=== PATIENT | female | born 1995 | race Caucasian/White ===

== ENCOUNTER 2019-05-13 11:42 | Emergency (ER) | payer SELFPAY ==
[2019-05-13] MEDS ORDERED: methylPREDNISolone Sodium Succinate 125 MG/2 ML SDV IM ONE (12:02)
--- NOTE | 2019-05-13 12:11 | EDM.PDOC ---
ED HPI GENERAL MEDICAL PROBLEM - General Chief Complaint: Allergic Reaction Stated Complaint: ALLERGIC REACTION Time Seen by Provider: 05/13/19 11:58 Source of Information: Reports: Patient History Limitations: Reports: No Limitations - History of Present Illness INITIAL COMMENTS - FREE TEXT/NARRATIVE: HISTORY AND PHYSICAL: History of present illness: Patient is a 24-year-old female who presents to the emergency room with concerns of an allergic reaction. She states she woke up this morning with irritated eyes, left greater than right and green crusty drainage along her lash line. She also noticed some redness to her upper forehead that appeared rash like. She denies any new exposures (fabrics, facewash, ointments etc..). Patient denies any fever, chills, headache, change in vision, syncope or near syncope. Denies any chest pain, back pain, shortness of breath or cough. Denies any GI or symptoms. Patient has been eating and drinking appropriately. Patient denies any personal or family history of any autoimmune diseases. Review of systems: As per history of present illness and below otherwise all systems reviewed and negative. Past medical history: As per history of present illness and as reviewed below otherwise noncontributory. Surgical history: As per history of present illness and as reviewed below otherwise noncontributory. Social history: See social history for further information Family history: As per history of present illness and as reviewed below otherwise noncontributory. Physical exam: General: Well-developed and well-nourished 24-year-old female. Alert and oriented. Nontoxic-appearing and in no acute distress. HEENT: Atraumatic, normocephalic, pupils equal and reactive bilaterally, negative for conjunctival pallor or scleral icterus, lateral injection noted to the left, both eyes have green crusty watery drainage along the lower lash line , mucous membranes moist, TMs normal bilaterally, throat clear, neck supple, nontender, trachea midline. No drooling or trismus noted. No meningeal signs. No hot potato voice noted. Lungs: Clear to auscultation, breath sounds equal bilaterally, chest nontender. Heart: S1S2, regular rate and rhythm without overt murmur Abdomen: Soft, nondistended, nontender. Negative for masses or hepatosplenomegaly. Negative for costovertebral tenderness. Pelvis: Stable nontender. Skin: Irritation noted around both eyes. She has a faint rash to the upper forehead, nonraised. No butterfly type rash noted. Otherwise skin is intact, warm, dry. No lesions or rashes noted. Extremities: Atraumatic, moves all extremities per self without difficulty or deficits, negative for cords or calf pain. Neurovascular unremarkable. Neuro: Awake, alert, oriented. Cranial nerves II through XII unremarkable. Cerebellum unremarkable. Motor and sensory unremarkable throughout. Exam nonfocal. Notes: Bilateral conjunctivitis will be treated with eyedrops. She states she had been washing her face and wiping away the drainage she had this morning. Looks like she may have irritated her skin to the upper forehead but will give Solu- Medrol while here we discussed using Benadryl. Reviewed signs and symptoms that would prompt her to return to the emergency room. Supportive care measures were reviewed and discussed. Voices understanding and is agreeable to plan of care. Denies any further questions or concerns at this time. Diagnostics: None Therapeutics: Solu-Medrol IM Prescription: Polytrim Impression: Conjunctivitis Contact dermatitis Plan: 1. Avoid triggers. Continue to monitor for possible exposures/triggers/foods. 2. While symptomatic continue to routinely take Benadryl 50mg every 4-6 hours. 3. Good handwashing well applying the eyedrops as this is contagious. 4. Please follow up with your Primary care doctor as we discussed. Return to the ED as needed and as discussed. Definitive disposition and diagnosis as appropriate pending reevaluation and review of above. fafce/eyes Pain Score (Numeric/FACES): 4 - Related Data Allergies Allergy/AdvReac Type Severity Reaction Status Date / Time ibuprofen Allergy Severe Other Verified 05/13/19 11:51 Penicillins Allergy Severe Swollen Verified 05/13/19 11:51 Tongue Home Meds: Home Meds Polymyxin B Sulf/Trimethoprim [Polytrim Eye Drops] 1 drop OP 5XDAY 7 Days #1 drops 05/13/19 [Rx] Past Medical History HEENT History: Reports: Impaired Vision, Other (See Below) Other HEENT History: wears glasses Cardiovascular History: Reports: None Respiratory History: Reports: Asthma Gastrointestinal History: Reports: Irritable Bowel Syndrome Genitourinary History: Reports: None 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 Musculoskeletal History: Reports: None Neurological History: Reports: None Psychiatric History: Reports: None Endocrine/Metabolic History: Reports: None Hematologic History: Reports: None Immunologic History: Reports: None Oncologic (Cancer) History: Reports: None Dermatologic History: Reports: None - Past Surgical History Head Surgeries/Procedures: Reports: None HEENT Surgical History: Reports: None Cardiovascular Surgical History: Reports: None Respiratory Surgical History: Reports: None GI Surgical History: Reports: None Female Surgical History: Reports: D&C, Tubal Ligation Endocrine Surgical History: Reports: None Neurological Surgical History: Reports: None Musculoskeletal Surgical History: Reports: None Oncologic Surgical History: Reports: None Dermatological Surgical History: Reports: None Social & Family History - Family History Family Medical History: Noncontributory - Tobacco Use Smoking Status *Q: Never Smoker Second Hand Smoke Exposure: No - Caffeine Use Caffeine Use: Reports: None - Recreational Drug Use Recreational Drug Use: No ED ROS ALLERGIC REACTION - Review of Systems Review Of Systems: Comprehensive ROS is negative, except as noted in HPI. ED EXAM GENERAL NO PERIP PULSE - Physical Exam Exam: See Below (See dictation) Course - Vital Signs Last Recorded V/S: Last Vital Signs Temp 96.7 F 05/13/19 11:51 Pulse 86 05/13/19 11:51 Resp 18 05/13/19 11:51 BP 144/89 H 05/13/19 11:51 Pulse Ox 96 05/13/19 11:51 - Orders/Labs/Meds Meds: Medications Discontinued Medications Generic Name Dose Route Start Last Admin Trade Name Rajinder PRN Reason Stop Dose Admin Methylprednisolone Sodium Succinate 125 mg 05/13/19 12:02 Solu-Medrol IM 05/13/19 12:03 ONETIME ONE Departure - Departure Time of Disposition: 12:15 Disposition: Home, Self-Care 01 Clinical Impression: Bacterial conjunctivitis of both eyes Contact dermatitis Qualifiers: Contact dermatitis type: unspecified Contact dermatitis trigger: unspecified trigger Qualified Code(s): L25.9 - Unspecified contact dermatitis, unspecified cause - Discharge Information Prescriptions: Polymyxin B Sulf/Trimethoprim [Polytrim Eye Drops] 1 drop OP 5XDAY 7 Days #1 drops Instructions: Bacterial Conjunctivitis, [id number], Contact Dermatitis Referrals: PCP,None [Primary Care Provider] - Additional Instructions: The following information is given to patients seen in the emergency department who are being discharged to home. This information is to outline your options for follow-up care. We provide all patients seen in our emergency department with a follow-up referral. The need for follow-up, as well as the timing and circumstances, are variable depending upon the specifics of your emergency department visit. If you don't have a primary care physician on staff, we will provide you with a referral. We always advise you to contact your personal physician following an emergency department visit to inform them of the circumstance of the visit and for follow-up with them and/or the need for any referrals to a consulting specialist. The emergency department will also refer you to a specialist when appropriate. This referral assures that you have the opportunity for follow-up care with a specialist. All of these measure are taken in an effort to provide you with optimal care, which includes your follow-up. Under all circumstances we always encourage you to contact your private physician who remains a resource for coordinating your care. When calling for follow-up care, please make the office aware that this follow-up is from your recent emergency room visit. If for any reason you are refused follow-up, please contact the [facility] Emergency Department at and asked to speak to the emergency department charge nurse. [facility] [address] [place] [id number] [facility] [address] [place] [id number] 1. Avoid any possible triggers. Continue to monitor for possible exposures/ triggers/foods. 2. While symptomatic continue to routinely take Benadryl 50mg every 4-6 hours. 3. Good handwashing well applying the eyedrops as this is contagious. If you have any previous contact lenses please throw them away and start a fresh pair. Wear your glasses while using the eyedrops and until the infection has cleared. 4. Please follow up with your Primary care doctor as we discussed. Return to the ED as needed and as discussed. Sepsis Event Note - Evaluation Sepsis Screening Result: No Definite Risk - Focused Exam Vital Signs: Vital Signs Temp Pulse Resp BP Pulse Ox 05/13/19 11:51 96.7 F 86 18 144/89 H 96 Date Exam was Performed: 05/13/19 Time Exam was Performed: 12:12
== END 2019-05-13 12:26 | disposition home or self-care (01) ==
LOC: MW.ED 11:42
DX: H10.89 Other conjunctivitis (principal); L25.9 Unspecified contact dermatitis, unspecified cause; Z88.6 Allergy status to analgesic agent; Z88.0 Allergy status to penicillin
CPT/HCPCS: 96372; 99283; J2930

== ENCOUNTER 2019-05-26 23:37 | Emergency (ER) | payer SELFPAY ==
--- NOTE | 2019-05-27 00:47 | EDM.PDOC ---
ED HPI GENERAL MEDICAL PROBLEM - General Chief Complaint: General Stated Complaint: POSSIBLE BLOODCLOT IN LEGS Time Seen by Provider: 05/27/19 00:37 - History of Present Illness INITIAL COMMENTS - FREE TEXT/NARRATIVE: HISTORY AND PHYSICAL: History of present illness: Patient is a 24-year-old female who complains of pain at the lower posterior portion of her left thigh that started today suddenly and she is concerned about a blood clot. The patient says she has had 2 prior DVTs, one was spontaneous and they did not do a big work-up and the second was due to prolonged bedrest, but she has never had a lab evaluation to determine if she is predisposed for clotting issues. The patient says that she did have a fall 3 days ago where she slipped hit her head but did not pass out or blackout and landed on her right leg but does not recall twisting or injuring her left leg. She has no bony leg pain on the left i.e. no hip pain pelvis pain femur knee tib -fib ankle or foot pain. She has no head neck or back pain and no systemic complaint such as fever chills nausea vomiting shortness of breath chest pain or abdominal issues. The patient says that she does not notice that it was particularly swollen but it is discomforting and it feels like her prior DVT. She has no neurosensory changes in her leg. The patient says she is not sure if this discomfort is related to her fall 3 days ago but she thinks not because she did not have any discomfort in this area for the last 3 days and the pain only started this evening. Review of systems: As per history of present illness and below otherwise all systems reviewed and negative. Past medical history: As per history of present illness and as reviewed below otherwise noncontributory. Surgical history: As per history of present illness and as reviewed below otherwise noncontributory. Social history: No reported history of drug or alcohol abuse. Family history: As per history of present illness and as reviewed below otherwise noncontributory. Physical exam: Well-developed well-nourished female who is nontoxic but obese. She moves easily in the ED without distress HEENT: Atraumatic, normocephalic, pupils reactive, negative for conjunctival pallor or scleral icterus, mucous membranes moist, throat clear, neck supple, nontender, trachea midline. Lungs: Clear to auscultation, breath sounds equal bilaterally, chest nontender. Heart: S1S2, regular, negative for clicks, rubs, or JVD. Abdomen: Soft, nondistended, nontender. Negative for masses or hepatosplenomegaly. Negative for costovertebral tenderness. Pelvis: Stable nontender. Genitourinary: Deferred. Rectal: Deferred. Extremities: Atraumatic, full range of motion of all extremities including the lower extremities without any bony defects deformities or malalignments. On palpation of the posterior distal thigh just above the popliteal fossa there is tenderness but I do not appreciate any fullness and there is no soft tissue swelling or ecchymosis. The patient can range of motion at the hip and knee without issue and can internally and externally rotate at the hip and flex and extend at the knee. There is no specific calf tenderness. The remainder of the extremities have no issues. Neurovascular unremarkable. Neuro: Awake, alert, oriented. Cranial nerves II through XII unremarkable. Cerebellum unremarkable. Motor and sensory unremarkable throughout. Exam nonfocal. Diagnostics: venous Doppler of left lower extremity Therapeutics: Patient is aware of the ultrasound results and I have offered her x-rays of this leg as well as medications and she is declining. She says she was only concerned about a DVT. Impression: Left thigh/posterior leg pain Definitive disposition and diagnosis as appropriate pending reevaluation and review of above. Left Thigh Pain Score (Numeric/FACES): 6 - Related Data Allergies Allergy/AdvReac Type Severity Reaction Status Date / Time ibuprofen Allergy Severe Other Verified 05/13/19 11:51 Penicillins Allergy Severe Swollen Verified 05/13/19 11:51 Tongue trazodone Allergy Swollen Verified 05/26/19 23:56 Tongue Home Meds: Home Meds . 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 Musculoskeletal History: Reports: None Neurological History: Reports: None Psychiatric History: Reports: None Endocrine/Metabolic History: Reports: None Hematologic History: Reports: None Immunologic History: Reports: None Oncologic (Cancer) History: Reports: None Dermatologic History: Reports: None - Past Surgical History Head Surgeries/Procedures: Reports: None HEENT Surgical History: Reports: None Cardiovascular Surgical History: Reports: None Respiratory Surgical History: Reports: None GI Surgical History: Reports: None Female Surgical History: Reports: D&C, Tubal Ligation Endocrine Surgical History: Reports: None Neurological Surgical History: Reports: None Musculoskeletal Surgical History: Reports: None Oncologic Surgical History: Reports: None Dermatological Surgical History: Reports: None Social & Family History - Family History Family Medical History: Noncontributory - Tobacco Use Smoking Status *Q: Never Smoker Second Hand Smoke Exposure: No - Caffeine Use Caffeine Use: Reports: None - Recreational Drug Use Recreational Drug Use: No ED ROS GENERAL - Review of Systems Review Of Systems: Comprehensive ROS is negative, except as noted in HPI. ED EXAM, GENERAL - Physical Exam Exam: See Below (see dictation) Course - Vital Signs Last Recorded V/S: Last Vital Signs Temp Pulse 90 05/26/19 23:53 Resp 18 05/26/19 23:53 BP 138/86 05/26/19 23:53 Pulse Ox 97 05/26/19 23:53 Departure - Departure Time of Disposition: Disposition: Home, Self-Care 01 Condition: Good Clinical Impression: Lower extremity pain, left - Discharge Information Referrals: PCP,None [Primary Care Provider] - Forms: ED Department Discharge Additional Instructions: The following information is given to patients seen in the emergency department who are being discharged to home. This information is to outline your options for follow-up care. We provide all patients seen in our emergency department with a follow-up referral. The need for follow-up, as well as the timing and circumstances, are variable depending upon the specifics of your emergency department visit. If you don't have a primary care physician on staff, we will provide you with a referral. We always advise you to contact your personal physician following an emergency department visit to inform them of the circumstance of the visit and for follow-up with them and/or the need for any referrals to a consulting specialist. The emergency department will also refer you to a specialist when appropriate. This referral assures that you have the opportunity for followup care with a specialist. All of these measure are taken in an effort to provide you with optimal care, which includes your followup. Under all circumstances we always encourage you to contact your private physician who remains a resource for coordinating your care. When calling for followup care, please make the office aware that this follow-up is from your recent emergency room visit. If for any reason you are refused follow-up, please contact the [facility] emergency department at and ask to speak to the emergency department charge nurse. [facility]- Internal Medicine and Family [address] [address] Ice to area and use [id number] medications for pain management. Please connect and follow-up with your provider in the clinic if the pain persists and return to ER as needed and as discussed. Sepsis Event Note - Evaluation Sepsis Screening Result: No Definite Risk - Focused Exam Vital Signs: Vital Signs Pulse Resp BP Pulse Ox 05/26/19 23:53 90 18 138/86 97 Date Exam was Performed: 05/27/19 Time Exam was Performed: 01:26
--- NOTE | 2019-05-27 01:23 | US ---
INDICATION: Left thigh pain, history of DVT COMPARISON: None. TECHNIQUE: A compression venous ultrasound exam was performed of the left lower extremity using mooney-scale imaging, color Doppler and spectral Doppler analysis. FINDINGS: Sonographic imaging of the left lower extremity demonstrates normal compressibility and color Doppler venous blood flow within the common femoral vein, deep femoral vein, and the proximal greater saphenous vein. Within the thigh, the femoral vein is patent and compressible. At a lower level, the popliteal and posterior tibial veins also show normal compressibility and color Doppler venous blood flow. IMPRESSION: No evidence of deep vein thrombosis within the left lower extremity. Dictated by Teodora Almeida MD @ May 27 2019 1:19AM Signed by Dr. Teodora Almeida @ May 27 2019 1:21AM
== END 2019-05-27 01:40 | disposition home or self-care (01) ==
LOC: MW.ED 23:37
DX: M79.652 Pain in left thigh (principal); Z88.0 Allergy status to penicillin; Z88.6 Allergy status to analgesic agent; Z88.8 Allergy status to other drugs, medicaments and biological substances
CPT/HCPCS: 93971-26-LT; 93971-LT; 99283-25

== ENCOUNTER 2019-08-07 22:03 | Emergency (ER) | payer SELFPAY ==
[2019-08-07] MEDS ORDERED: methylPREDNISolone Sodium Succinate 125 MG/2 ML SDV ONE (22:06)
[2019-08-07] MEDS ORDERED: Famotidine 20 MG/2 ML SDV ONE (22:06)
[2019-08-07] MEDS ORDERED: diphenhydrAMINE 50 MG/ML SDV ONE (22:06)
[2019-08-07] MEDS ORDERED: EPINEPHrine 1 MG/ML SDV ONE (22:07)
[2019-08-07] MEDS ORDERED: diphenhydrAMINE 50 MG/ML SDV IVPUSH ONE (22:14)
[2019-08-07] MEDS ORDERED: EPINEPHrine 1 MG/ML SDV IM ONE (22:14)
[2019-08-07] MEDS ORDERED: methylPREDNISolone Sodium Succinate 125 MG/2 ML SDV IVPUSH ONE (22:14)
[2019-08-07] MEDS ORDERED: Famotidine 20 MG/2 ML SDV IVPUSH ONE (22:14)
--- NOTE | 2019-08-07 22:17 | EDM.PDOC ---
ED HPI GENERAL MEDICAL PROBLEM - General Chief Complaint: Allergic Reaction Stated Complaint: ALLERGIC REACTION Time Seen by Provider: 08/07/19 22:03 Source of Information: Reports: Patient History Limitations: Reports: No Limitations - History of Present Illness INITIAL COMMENTS - FREE TEXT/NARRATIVE: HISTORY OF PRESENT ILLNESS: Patient is a 24-year-old female who presents with allergic reaction. Patient states that approximately 10 minutes prior to arrival she started having red raised area to her body diffusely but predominantly on her bilateral forearms along with sensation that the right side of her tongue is becoming swollen. Denies any difficulty swallowing. No dyspnea or wheezing. Denies any chest pain abdominal pain, vomiting or diarrhea. Denies any new medications, detergents, lotions, viut-hyr-plzmgnh's, herbals, foods. Shee cannot think of any inciting cause. She has had a history of allergic reaction in the past which was due to eating a "cheap hamburger". Has had allergy testing done several years ago. Does not take any medication on a regular basis. REVIEW OF SYSTEMS: Other than the symptoms associated with the present events, the following is reported with regard to recent health: General: (-) fever. HENT: (-) congestion. Respiratory: (-) cough. Cardiovascular: (-) chest pain. GI: (-) abdominal pain. : (-) urinary complaints. Musculoskeletal: (-) other aches or pains. Endocrine: (-) generalized weakness. Neurological: (-) localized weakness. Skin: (+) rash PAST MEDICAL HISTORY: reviewed as per nursing notes SOCIAL HISTORY: reviewed as per nursing notes, MEDICATIONS: Per nurse's note ALLERGIES: Per nurse's note, reviewed by me PHYSICAL EXAMINATION: GENERALIZED APPEARANCE: well developed, well nourished in mild distress VITAL SIGNS: Per nurse's note, reviewed by me SKIN: Warm, dry; (-) cyanosis; (+) raised wheals to bilateral forearms, several pruritic red macules and patches to extremities and torso HEAD: (-) scalp swelling, (-) tenderness. EYES: (-) conjunctival pallor, (-) scleral icterus. ENMT: (-) stridor; mucous membranes moist. uvula midline. no phonation changes. no gross angioedema. NECK: (-) tenderness, (-) stiffness, CHEST AND RESPIRATORY: (-) rales, (-) rhonchi, (-) wheezes; breath sounds equal bilaterally. HEART AND CARDIOVASCULAR: (-) irregularity; (-) murmur, (-) gallop. ABDOMEN AND GI: Soft; (-) tenderness, (-) guarding, (-) rebound, (-) palpable masses, EXTREMITIES: (-) deformity, (-) edema. NEURO AND PSYCH: Alert. Cranial nerves grossly intact; strength symmetric. gait steady EMERGENCY DEPARTMENT COURSE AND TREATMENT: Patient's condition improved during Emergency Department evaluation. Seen immediately upon arrival. Given epinephrine 0.3 mg IM, Benadryl 50 mg IV, Pepcid 50 mg IV, Solumedrol 125 mg IV. Rechecked multiple times and observed for 2 hours. Had resolution of sensation of right sided tongue swelling, rash improved. Pt states she feels better. To follow up with pcp tomorrow and sports administrator within 1 week. Return immediately with any new or worsening symptoms. Discharged to home with rx for epi-pen and prednisone. PLAN AND FOLLOW-UP: Patient received written and verbal instructions regarding this condition. Return to ED immediately with any new or worsening symptoms. Follow up to be arranged by patient with pcp in 1 days for further evaluation. Given discharge precautions. patient expressed verbal understanding. - Related Data Allergies Allergy/AdvReac Type Severity Reaction Status Date / Time ibuprofen Allergy Severe Other Verified 05/13/19 11:51 Penicillins Allergy Severe Swollen Verified 05/13/19 11:51 Tongue tomato Allergy Hives Verified 08/07/19 22:13 trazodone Allergy Swollen Verified 05/26/19 23:56 Tongue Home Meds: Home Meds EPINEPHrine [Epinephrine] 0.3 mg IM ONETIME #2 pen 08/07/19 [Rx] predniSONE [Prednisone] 50 mg PO DAILY #5 tablet 08/07/19 [Rx] Past Medical History HEENT History: Reports: Impaired Vision, Other (See Below) Other HEENT History: wears glasses Cardiovascular History: Reports: None Respiratory History: Reports: Asthma Gastrointestinal History: Reports: Irritable Bowel Syndrome Genitourinary History: Reports: None 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 Musculoskeletal History: Reports: None Neurological History: Reports: None Psychiatric History: Reports: None Endocrine/Metabolic History: Reports: None Hematologic History: Reports: None Immunologic History: Reports: None Oncologic (Cancer) History: Reports: None Dermatologic History: Reports: None - Past Surgical History Head Surgeries/Procedures: Reports: None HEENT Surgical History: Reports: None Cardiovascular Surgical History: Reports: None Respiratory Surgical History: Reports: None GI Surgical History: Reports: None Female Surgical History: Reports: D&C, Tubal Ligation Endocrine Surgical History: Reports: None Neurological Surgical History: Reports: None Musculoskeletal Surgical History: Reports: None Oncologic Surgical History: Reports: None Dermatological Surgical History: Reports: None Social & Family History - Family History Family Medical History: Noncontributory - Caffeine Use Caffeine Use: Reports: None ED ROS ALLERGIC REACTION - Review of Systems Review Of Systems: See Below (see dictation) ED EXAM GENERAL NO PERIP PULSE - Physical Exam Exam: See Below (see dictation) Course - Vital Signs Last Recorded V/S: Last Vital Signs Temp 97.3 F 08/07/19 22:03 Pulse 84 08/07/19 23:00 Resp 18 08/07/19 23:00 BP 116/82 08/07/19 23:00 Pulse Ox 99 08/07/19 23:00 - Orders/Labs/Meds Meds: Medications Discontinued Medications Generic Name Dose Route Start Last Admin Trade Name Rajinder PRN Reason Stop Dose Admin Diphenhydramine HCl Confirm 08/07/19 22:06 08/07/19 22:18 Benadryl Administered 08/07/19 22:07 Not Given Dose 50 mg .ROUTE .STK-MED ONE Diphenhydramine HCl 50 mg 08/07/19 22:14 08/07/19 22:16 Benadryl IVPUSH 08/07/19 22:15 50 mg ONETIME ONE Administration Epinephrine HCl Confirm 08/07/19 22:07 08/07/19 22:17 Adrenalin Administered 08/07/19 22:08 Not Given Dose 1 mg .ROUTE .STK-MED ONE Epinephrine HCl 0.3 mg 08/07/19 22:14 08/07/19 22:17 Adrenalin IM 08/07/19 22:15 0.3 mg ONETIME ONE Administration Famotidine Confirm 08/07/19 22:06 08/07/19 22:18 Pepcid Administered 08/07/19 22:07 Not Given Dose 20 mg .ROUTE .STK-MED ONE Famotidine 20 mg 08/07/19 22:14 08/07/19 22:16 Pepcid IVPUSH 08/07/19 22:15 20 mg ONETIME ONE Administration Methylprednisolone Sodium Succinate Confirm 08/07/19 22:06 08/07/19 22:18 Solu-Medrol Administered 08/07/19 22:07 Not Given Dose 125 mg .ROUTE .STK-MED ONE Methylprednisolone Sodium Succinate 125 mg 08/07/19 22:14 08/07/19 22:16 Solu-Medrol IVPUSH 08/07/19 22:15 125 mg ONETIME ONE Administration Departure - Departure Time of Disposition: 23:59 Disposition: Home, Self-Care 01 Condition: Good Clinical Impression: Allergic reaction - Discharge Information *PRESCRIPTION DRUG MONITORING PROGRAM REVIEWED*: Not Applicable *COPY OF PRESCRIPTION DRUG MONITORING REPORT IN PATIENT BHAVANI: Not Applicable Prescriptions: EPINEPHrine [Epinephrine] 0.3 mg IM ONETIME #2 pen predniSONE [Prednisone] 50 mg PO DAILY #5 tablet Instructions: Anaphylactic Reaction, Adult Referrals: Vi Isaac [Ordering Only Provider] - 1 Day Forms: ED Department Discharge Additional Instructions: The following information is given to patients seen in the emergency department who are being discharged to home. This information is to outline your options for follow-up care. We provide all patients seen in our emergency department with a follow-up referral. The need for follow-up, as well as the timing and circumstances, are variable depending upon the specifics of your emergency department visit. If you don't have a primary care physician on staff, we will provide you with a referral. We always advise you to contact your personal physician following an emergency department visit to inform them of the circumstance of the visit and for follow-up with them and/or the need for any referrals to a consulting specialist. The emergency department will also refer you to a specialist when appropriate. This referral assures that you have the opportunity for follow-up care with a specialist. All of these measure are taken in an effort to provide you with optimal care, which includes your follow-up. Under all circumstances we always encourage you to contact your private physician who remains a resource for coordinating your care. When calling for follow-up care, please make the office aware that this follow-up is from your recent emergency room visit. If for any reason you are refused follow-up, please contact the [facility] Emergency Department at and asked to speak to the emergency department charge nurse. Sepsis Event Note - Focused Exam Vital Signs: Vital Signs Temp Pulse Resp BP Pulse Ox 08/07/19 23:00 84 18 116/82 99 08/07/19 22:03 97.3 F 95 22 H 158/89 H 95 Date Exam was Performed: 08/07/19 Time Exam was Performed: 23:57
== END 2019-08-08 00:12 | disposition home or self-care (01) ==
LOC: MW.ED 22:03
DX: T78.40XA Allergy, unspecified, initial encounter (principal); J45.909 Unspecified asthma, uncomplicated; Z88.6 Allergy status to analgesic agent; Z88.0 Allergy status to penicillin; Z91.018 Allergy to other foods; Z88.5 Allergy status to narcotic agent
CPT/HCPCS: 96372; 96374; 96375; 99283; J0171; J1200; J2930; S0028; 99282; J3490

== ENCOUNTER 2020-01-06 07:34 | Emergency (ER) | payer SELFPAY ==
--- NOTE | 2020-01-06 08:07 | EDM.PDOC ---
ED HPI GENERAL MEDICAL PROBLEM - General Chief Complaint: Skin Complaint Stated Complaint: POSSIBLE STAPH INFECTION IN RT EAR Time Seen by Provider: 01/06/20 07:34 Source of Information: Reports: Patient - History of Present Illness INITIAL COMMENTS - FREE TEXT/NARRATIVE: 24F recurrent ear infections presents with atraumatic pain/swelling of auricle of R ear x3 days. No discharge, hearing loss, fevers, N/V. Has tried antihistamine without relief. Has not been on antibiotics recently. Right Ear Pain Score (Numeric/FACES): 6 - Related Data Allergies Allergy/AdvReac Type Severity Reaction Status Date / Time ibuprofen Allergy Severe Other Verified 01/06/20 07:47 Penicillins Allergy Severe Swollen Verified 01/06/20 07:47 Tongue tomato Allergy Hives Verified 01/06/20 07:47 trazodone Allergy Swollen Verified 01/06/20 07:47 Tongue Home Meds: Home Meds Ciprofloxacin HCl 750 mg PO BID 7 Days #14 tablet 01/06/20 [Rx] Past Medical History HEENT History: Reports: Impaired Vision, Other (See Below) Other HEENT History: wears glasses Cardiovascular History: Reports: None Respiratory History: Reports: Asthma Gastrointestinal History: Reports: Irritable Bowel Syndrome Genitourinary History: Reports: None 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: 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 Musculoskeletal History: Reports: None Neurological History: Reports: None Psychiatric History: Reports: None Endocrine/Metabolic History: Reports: None Hematologic History: Reports: None Immunologic History: Reports: None Oncologic (Cancer) History: Reports: None Dermatologic History: Reports: None - Infectious Disease History Infectious Disease History: Reports: Chicken Pox - Past Surgical History Head Surgeries/Procedures: Reports: None HEENT Surgical History: Reports: None Cardiovascular Surgical History: Reports: None Respiratory Surgical History: Reports: None GI Surgical History: Reports: None Female Surgical History: Reports: D&C, Tubal Ligation Endocrine Surgical History: Reports: None Neurological Surgical History: Reports: None Musculoskeletal Surgical History: Reports: None Oncologic Surgical History: Reports: None Dermatological Surgical History: Reports: None Social & Family History - Family History Family Medical History: Noncontributory - Tobacco Use Smoking Status *Q: Never Smoker Second Hand Smoke Exposure: No - Caffeine Use Caffeine Use: Reports: None - Recreational Drug Use Recreational Drug Use: No ED ROS GENERAL - Review of Systems Review Of Systems: Comprehensive ROS is negative, except as noted in HPI. ED EXAM, SKIN/RASH Exam: See Below Exam Limited By: Altered Mental Status General Appearance: Alert, WD/WN, No Apparent Distress Ears: Other (swelling/erythema/TTP of R auricle ear consistent with auricular perichondritis, normal appearing TM and EAC, left ear exam externally normal and normal TM/EAC. No mastroid bogginess or TTP b/l) Nose: Normal Inspection, Normal Mucosa Throat/Mouth: Normal Inspection, Normal Lips Head: Atraumatic, Normocephalic Neck: Normal Inspection, Supple Respiratory/Chest: No Respiratory Distress, Lungs Clear, Normal Breath Sounds, No Accessory Muscle Use Cardiovascular: Normal Peripheral Pulses, Regular Rate, Rhythm, No Edema Extremities: Normal Inspection, Normal Range of Motion Neurological: Alert Psychiatric: Normal Affect, Normal Mood Skin: Warm, Dry, Intact Course - Vital Signs Last Recorded V/S: Last Vital Signs Temp 97.2 F 01/06/20 07:48 Pulse 86 01/06/20 07:48 Resp 14 01/06/20 07:48 BP 134/90 01/06/20 07:48 Pulse Ox 97 01/06/20 07:48 - Re-Assessments/Exams Free Text/Narrative Re-Assessment/Exam: 01/06/20 08:04 Will d/c with antibiotics to cove for auricular perichondritis, recommend f/u with ENT for further workup Departure - Departure Time of Disposition: 08:04 Disposition: Home, Self-Care 01 Condition: Good Clinical Impression: Perichondritis of auricle Qualifiers: Laterality: right Qualified Code(s): H61.001 - Unspecified perichondritis of right external ear - Discharge Information Prescriptions: Ciprofloxacin HCl 750 mg PO BID 7 Days #14 tablet Instructions: Perichondritis, Adult Referrals: PCP,None [Primary Care Provider] - Additional Instructions: The following information is given to patients seen in the emergency department who are being discharged to home. This information is to outline your options for follow-up care. We provide all patients seen in our emergency department with a follow-up referral. The need for follow-up, as well as the timing and circumstances, are variable depending upon the specifics of your emergency department visit. If you don't have a primary care physician on staff, we will provide you with a referral. We always advise you to contact your personal physician following an emergency department visit to inform them of the circumstance of the visit and for follow-up with them and/or the need for any referrals to a consulting specialist. The emergency department will also refer you to a specialist when appropriate. This referral assures that you have the opportunity for follow-up care with a specialist. All of these measure are taken in an effort to provide you with optimal care, which includes your follow-up. Under all circumstances we always encourage you to contact your private physician who remains a resource for coordinating your care. When calling for follow-up care, please make the office aware that this follow-up is from your recent emergency room visit. If for any reason you are refused follow-up, please contact the [facility] Emergency Department at and asked to speak to the emergency department charge nurse. ENT followup: Dr. Rizwan Covarrubias [phone] [place] [address] Sepsis Event Note (ED) - Evaluation Sepsis Screening Result: No Definite Risk - Focused Exam Vital Signs: Vital Signs Temp Pulse Resp BP Pulse Ox 01/06/20 07:48 97.2 F 86 14 134/90 97
== END 2020-01-06 08:19 | disposition home or self-care (01) ==
LOC: MW.ED 07:34
DX: H61.001 Unspecified perichondritis of right external ear (principal); J45.909 Unspecified asthma, uncomplicated; Z88.6 Allergy status to analgesic agent; Z88.0 Allergy status to penicillin; Z91.018 Allergy to other foods; Z88.5 Allergy status to narcotic agent
CPT/HCPCS: 99282

== ENCOUNTER 2020-01-07 08:07 | Emergency (ER) | payer SELFPAY ==
--- NOTE | 2020-01-07 08:17 | EDM.PDOC ---
ED HPI GENERAL MEDICAL PROBLEM - General Chief Complaint: ENT Problem Stated Complaint: INFECTION RT EAR Time Seen by Provider: 01/07/20 08:11 Source of Information: Reports: Patient History Limitations: Reports: No Limitations - History of Present Illness INITIAL COMMENTS - FREE TEXT/NARRATIVE: 24F presents for reevaluation of R ear pain/swelling/redness. Was seen by me yesterday and given ciprofloxacin rx for auricular perichondritis. She has noted worsening pain/swelling/redness despite medication compliance. I had informed her yesterday that this may require ENT evaluation for I&D. Denies fevers, chills, N/V, or other systemic symptoms. right ear, right jaw Pain Score (Numeric/FACES): 9 - Related Data Allergies Allergy/AdvReac Type Severity Reaction Status Date / Time ibuprofen Allergy Severe Other Verified 01/07/20 08:17 Penicillins Allergy Severe Swollen Verified 01/07/20 08:17 Tongue tomato Allergy Hives Verified 01/07/20 08:17 trazodone Allergy Swollen Verified 01/07/20 08:17 Tongue Home Meds: Home Meds Ciprofloxacin HCl 750 mg PO BID 7 Days #14 tablet 01/06/20 [Rx] clindamycin HCL [Clindamycin HCl] 300 mg PO TID 10 Days #30 capsule 01/07/20 [Rx] oxyCODONE HCl/Acetaminophen [Percocet 5-325 mg Tablet] 1 each PO Q4H PRN 3 Days #18 tablet 01/07/20 [Rx] Past Medical History HEENT History: Reports: Impaired Vision, Other (See Below) Other HEENT History: wears glasses Cardiovascular History: Reports: None Respiratory History: Reports: Asthma Gastrointestinal History: Reports: Irritable Bowel Syndrome Genitourinary History: Reports: None 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 Musculoskeletal History: Reports: None Neurological History: Reports: None Psychiatric History: Reports: None Endocrine/Metabolic History: Reports: None Hematologic History: Reports: None Immunologic History: Reports: None Oncologic (Cancer) History: Reports: None Dermatologic History: Reports: None - Infectious Disease History Infectious Disease History: Reports: Chicken Pox - Past Surgical History Head Surgeries/Procedures: Reports: None HEENT Surgical History: Reports: None Cardiovascular Surgical History: Reports: None Respiratory Surgical History: Reports: None GI Surgical History: Reports: None Female Surgical History: Reports: D&C, Tubal Ligation Endocrine Surgical History: Reports: None Neurological Surgical History: Reports: None Musculoskeletal Surgical History: Reports: None Oncologic Surgical History: Reports: None Dermatological Surgical History: Reports: None Social & Family History - Family History Family Medical History: Noncontributory - Caffeine Use Caffeine Use: Reports: None ED ROS ENT - Review of Systems Review Of Systems: Comprehensive ROS is negative, except as noted in HPI. ED EXAM, ENT - Physical Exam Exam: See Below Exam Limited By: No Limitations General Appearance: Alert, WD/WN, No Apparent Distress Ears: Other (significant erythema/swelling/TTP of R ear auricle consistent with worsening auricular perichondritis ) Nose: Normal Inspection Head: Atraumatic, Normocephalic Neck: Normal Inspection Respiratory/Chest: No Respiratory Distress, Lungs Clear, Normal Breath Sounds, No Accessory Muscle Use Cardiovascular: Normal Peripheral Pulses, Regular Rate, Rhythm Extremities: Normal Inspection Neurological: Alert Psychiatric: Normal Affect, Normal Mood Skin: Warm, Dry, Intact, Normal Color, No Rash Course - Vital Signs Last Recorded V/S: Last Vital Signs Temp 95.5 F L 01/07/20 08:12 Pulse 78 01/07/20 10:00 Resp 18 01/07/20 08:12 BP 125/78 01/07/20 10:00 Pulse Ox 98 01/07/20 10:00 - Orders/Labs/Meds Orders: Active Orders 24 hr Category Date Time Status CULTURE BLOOD [BC] Stat Lab 01/07/20 08:35 Received CULTURE BLOOD [BC] Stat Lab 01/07/20 09:02 Received Clindamycin Phosphate in D5W [Cleocin in D5W] 900 mg Med 01/07/20 11:06 Ordered Premix Bag 1 bag IV ONETIME Sodium Chloride 0.9% [Saline Flush] Med 01/07/20 08:28 Active 10 ml FLUSH ASDIRECTED PRN Sodium Chloride 0.9% [Saline Flush] Med 01/07/20 08:28 Active 2.5 ml FLUSH ASDIRECTED PRN Blood Culture x2 Reflex Set [OM.PC] Stat Oth 01/07/20 08:28 Ordered Saline Lock Insert [OM.PC] Stat Oth 01/07/20 08:28 Ordered Medication Orders Clindamycin Phosphate 900 mg/ (Premix) 50 mls @ 100 mls/hr IV ONETIME ONE Stop: 01/07/20 11:35 Sodium Chloride (Saline Flush) 10 ml FLUSH ASDIRECTED PRN PRN Reason: Keep Vein Open Last Admin: 01/07/20 08:41 Dose: 10 ml Documented by: SNEHA Sodium Chloride (Saline Flush) 2.5 ml FLUSH ASDIRECTED PRN PRN Reason: Keep Vein Open Last Admin: 01/07/20 08:41 Dose: 2.5 ml Documented by: SNEHA Labs: Laboratory Tests 01/07/20 01/07/20 01/07/20 Range/Units 08:35 08:35 08:35 WBC 8.82 (4.0-11.0) K/uL RBC 4.01 L (4.30-5.90) M/uL Hgb 13.3 (12.0-16.0) g/dL Hct 37.7 (36.0-46.0) % MCV 94.0 (80.0-98.0) fL MCH 33.2 H (27.0-32.0) pg MCHC 35.3 (31.0-37.0) g/dL RDW Std Deviation 38.0 (28.0-62.0) fl RDW Coeff of Willy 11 (11.0-15.0) % Plt Count 242 (150-400) K/uL MPV 8.40 (7.40-12.00) fL Neut % (Auto) 56.8 (48.0-80.0) % Lymph % (Auto) 34.1 (16.0-40.0) % [place] % (Auto) 7.8 (0.0-15.0) % Eos % (Auto) 1.2 (0.0-7.0) % Baso % (Auto) 0.1 (0.0-1.5) % Neut # (Auto) 5.0 (1.4-5.7) K/uL Lymph # (Auto) 3.0 H (0.6-2.4) K/uL [place] # (Auto) 0.7 (0.0-0.8) K/uL Eos # (Auto) 0.1 (0.0-0.7) K/uL Baso # (Auto) 0.0 (0.0-0.1) K/uL Lactate 0.8 (0.20-2.00) mmol/L Sodium 139 (136-145) mmol/L Potassium 3.7 (3.5-5.1) mmol/L Chloride 105 (98-107) mmol/L Carbon Dioxide 26.2 (21.0-32.0) mmol/L BUN 10 (7.0-18.0) mg/dL Creatinine 0.8 (0.6-1.0) mg/dL Est Cr Clr Drug Dosing 99.76 mL/min Estimated GFR (MDRD) > 60.0 ml/min Glucose 97 (74-106) mg/dL Calcium 8.3 L (8.5-10.1) mg/dL Total Bilirubin 0.3 (0.2-1.0) mg/dL AST 19 (15-37) IU/L ALT 36 (14-63) IU/L Alkaline Phosphatase 76 (46-116) U/L Total Protein 6.8 (6.4-8.2) g/dL Albumin 3.3 L (3.4-5.0) g/dL Globulin 3.5 (2.6-4.0) g/dL Albumin/Globulin Ratio 0.9 (0.9-1.6) Meds: Medications Generic Name Dose Route Start Last Admin Trade Name Freq PRN Reason Stop Dose Admin Clindamycin Phosphate 900 mg/ 50 mls @ 100 mls/hr 01/07/20 11:06 Premix IV 01/07/20 11:35 ONETIME ONE Sodium Chloride 10 ml 01/07/20 08:28 01/07/20 08:41 Saline Flush FLUSH 10 ml ASDIRECTED PRN Administration Keep Vein Open Sodium Chloride 2.5 ml 01/07/20 08:28 01/07/20 08:41 Saline Flush FLUSH 2.5 ml ASDIRECTED PRN Administration Keep Vein Open Discontinued Medications Generic Name Dose Route Start Last Admin Trade Name Freq PRN Reason Stop Dose Admin Dexamethasone 10 mg 01/07/20 11:06 Dexamethasone IVPUSH 01/07/20 11:07 ONETIME ONE Sodium Chloride 1,000 mls @ 999 mls/hr 01/07/20 08:28 01/07/20 08:40 Normal Saline IV 01/07/20 09:28 999 mls/hr .Bolus ONE Administration Morphine Sulfate 4 mg 01/07/20 08:28 01/07/20 08:55 Morphine IVPUSH 01/07/20 08:29 4 mg ONETIME ONE Administration - Re-Assessments/Exams Free Text/Narrative Re-Assessment/Exam: 01/07/20 08:17 Ear is much worse looking today. Will get CT imaging of soft tissue neck to injure no deep space abscess since pain is tracking down neck. Will get sepsis w/u labs and patient did meet SIRS criteria. Will treat pain. Will f/u results and anticipate transfer for ENT versus d/c for urgent ENT f/u today. Free Text/Narrative Re-Assessment/Exam: 01/07/20 11:[address] Ricci DE ANDA at [facility] who recommends steroids, switching Abx to clindamycin, and f/u in his office this week. Will start that plan. Departure - Departure Time of Disposition: 11:09 Disposition: Home, Self-Care 01 Clinical Impression: Perichondritis of auricle Qualifiers: Laterality: right Qualified Code(s): H61.001 - Unspecified perichondritis of right external ear - Discharge Information Prescriptions: clindamycin HCL [Clindamycin HCl] 300 mg PO TID 10 Days #30 capsule oxyCODONE HCl/Acetaminophen [Percocet 5-325 mg Tablet] 1 each PO Q4H PRN 3 Days #18 tablet PRN Reason: Pain Referrals: PCP,None [Primary Care Provider] - Forms: ED Department Discharge Additional Instructions: The following information is given to patients seen in the emergency department who are being discharged to home. This information is to outline your options for follow-up care. We provide all patients seen in our emergency department with a follow-up referral. The need for follow-up, as well as the timing and circumstances, are variable depending upon the specifics of your emergency department visit. If you don't have a primary care physician on staff, we will provide you with a referral. We always advise you to contact your personal physician following an emergency department visit to inform them of the circumstance of the visit and for follow-up with them and/or the need for any referrals to a consulting specialist. The emergency department will also refer you to a specialist when appropriate. This referral assures that you have the opportunity for follow-up care with a specialist. All of these measure are taken in an effort to provide you with optimal care, which includes your follow-up. Under all circumstances we always encourage you to contact your private physician who remains a resource for coordinating your care. When calling for follow-up care, please make the office aware that this follow-up is from your recent emergency room visit. If for any reason you are refused follow-up, please contact the [facility] Emergency Department at and asked to speak to the emergency department charge nurse. Please follow up with Dr. Wynne at [facility]: [address], [place] [id number] , please ask for Dr. Wynne's office and they will transfer you. Sepsis Event Note (ED) - Focused Exam Vital Signs: Vital Signs Temp Pulse Resp BP Pulse Ox 01/07/20 10:00 78 125/78 98 01/07/20 08:12 95.5 F L 99 18 160/104 H 94 L - My Orders Last 24 Hours: My Active Orders 01/07/20 08:28 Sodium Chloride 0.9% [Saline Flush] 10 ml FLUSH ASDIRECTED PRN Sodium Chloride 0.9% [Saline Flush] 2.5 ml FLUSH ASDIRECTED PRN Blood Culture x2 Reflex Set [OM.PC] Stat Saline Lock Insert [OM.PC] Stat 01/07/20 08:35 CULTURE BLOOD [BC] Stat 01/07/20 09:02 CULTURE BLOOD [BC] Stat 01/07/20 11:06 Clindamycin Phosphate in D5W [Cleocin in D5W] 900 mg Premix Bag 1 bag IV ONETIME - Assessment/Plan Last 24 Hours: My Active Orders 01/07/20 08:28 Sodium Chloride 0.9% [Saline Flush] 10 ml FLUSH ASDIRECTED PRN Sodium Chloride 0.9% [Saline Flush] 2.5 ml FLUSH ASDIRECTED PRN Blood Culture x2 Reflex Set [OM.PC] Stat Saline Lock Insert [OM.PC] Stat 01/07/20 08:35 CULTURE BLOOD [BC] Stat 01/07/20 09:02 CULTURE BLOOD [BC] Stat 01/07/20 11:06 Clindamycin Phosphate in D5W [Cleocin in D5W] 900 mg Premix Bag 1 bag IV ONETIME
[2020-01-07] MEDS ORDERED: Sodium Chloride 0.9% 1,000 ML IV ONE (08:28)
[2020-01-07] MEDS ORDERED: Sodium Chloride 0.9% 2.5 ML Syringe FLUSH PRN (08:28)
[2020-01-07] MEDS ORDERED: Sodium Chloride 0.9% 10 ML Syringe FLUSH PRN (08:28)
[2020-01-07] MEDS ORDERED: Morphine 4 MG/ML Syringe IVPUSH ONE (08:28)
[2020-01-07 09:08] LABS: BLOOD UREA NITROGEN,BUN 10 mg/dL (7.0-18.0); CARBON DIOXIDE,CO2 26.2 mmol/L (21.0-32.0); CHLORIDE,CL 105 mmol/L (98-107); GLUCOSE RANDOM 97 mg/dL (74-106); POTASSIUM,K 3.7 mmol/L (3.5-5.1); SODIUM,NA 139 mmol/L (136-145)
--- NOTE | 2020-01-07 10:46 | CT ---
CT neck Technique: Multiple axial sections were obtained from above the external auditory canals inferiorly through the lung apices. Intravenous contrast was utilized. Reconstructed coronal and sagittal images were obtained. Findings: Diffuse inflammatory change is identified which involves the earlobe which then extends inferiorly mostly external to the platysma muscle. This muscle is mildly thickened compatible with inflammatory enlargement. No fluid collections of abscess are seen at this time. Parotid salivary gland on the right side is very close to the inflammatory change but shows no discrete abnormality at this time. Left parotid salivary gland and submandibular salivary glands appear normal. Slightly prominent lymph nodes on the right side compatible with inflammatory enlargement. No additional abnormality is appreciated. Impression: 1. Right-sided inflammatory change as described above. No fluid collections of abscess are seen. 2. Slightly enlarged right-sided lymph nodes compatible with inflammatory enlargement. Diagnostic code #3 This report was dictated in MDT
[2020-01-07] MEDS ORDERED: Dexamethasone 10 MG/ML SDV IVPUSH ONE (11:06)
[2020-01-07] MEDS ORDERED: Clindamycin Phosphate in D5W 900 MG in Premix Bag 1 BAG IV ONE ×2 (11:06)
[2020-01-07] MEDS ORDERED: Iopamidol 755 Mg/ML 100 ML Bottle IVPUSH STA (12:22)
== END 2020-01-07 12:09 | disposition home or self-care (01) ==
LOC: MW.ED 08:07
DX: H61.001 Unspecified perichondritis of right external ear (principal); J45.909 Unspecified asthma, uncomplicated; Z88.0 Allergy status to penicillin; Z91.018 Allergy to other foods; Z88.8 Allergy status to other drugs, medicaments and biological substances; Z88.6 Allergy status to analgesic agent; Z79.899 Other long term (current) drug therapy
CPT/HCPCS: 70491; 80053; 83605; 85025; 87040; 96361; 96365; 96375; 99283; J1100; J2270; J3490; J7030; Q9967

== ENCOUNTER 2020-04-24 18:41 | Emergency (ER) | payer SELFPAY ==
--- NOTE | 2020-04-24 19:22 | EDM.PDOC ---
ED HPI GENERAL MEDICAL PROBLEM - General Chief Complaint: Skin Complaint Stated Complaint: LEFT ARM PAIN Time Seen by Provider: 04/24/20 18:43 Source of Information: Reports: Patient History Limitations: Reports: No Limitations - History of Present Illness INITIAL COMMENTS - FREE TEXT/NARRATIVE: HISTORY AND PHYSICAL: History of present illness: Patient is a 25-year-old female who presents to the ED today with concern of left breast/armpit infection that started 2 days ago. Patient states that the area started as a slight pimple infection and took off and spread into more p ainful and red and warm today. Patient states that yesterday she had a fever of 103 and felt as if she has had fevers today but did take Tylenol 6 hours prior to coming to the emergency room which helped with her fever. Patient states that she is not breast-feeding but she used to breast-feed 5 years ago. Patient states that she is no longer lactating or having any nipple drainage. Patient states that she also has hives as every time she has a fever, she breaks out in hives. Patient states that she has not taken anything for this. Patient denies any other health history or any other symptoms or concerns. Patient states she has a history of tubal ligation. Patient denies chills, chest pain, shortness of breath, or cough. Denies headache, neck stiff ness, change in vision, syncope, or near syncope. Denies nausea, vomiting, abdominal pain, diarrhea, constipation, or dysuria. Has not noted any blood in urine or stool. Patient has been eating and drinking appropriately. Review of systems: As per history of present illness and below otherwise all systems reviewed and negative. Past medical history: As per history of present illness and as reviewed below otherwise noncontribut ory. Surgical history: As per history of present illness and as reviewed below otherwise noncontributory. Social history: See social history for further information Family history: As per history of present illness and as reviewed below otherwise noncontributory. Physical exam: General: Patient is alert, oriented, and in no acute distress. Patient sitting comfortably on exam table. HEENT: Atraumatic, normocephalic, pupils equal and reactive bilaterally, negative for conjunctival pallor or scleral icterus, mucous membranes moist, TMs normal bilaterally, throat clear, neck supple, nontender, trachea midline. No drooling or trismus noted. No meningeal signs. No hot potato voice noted. Lungs: Clear to auscultation, breath sounds equal bilaterally, chest nontender. Heart: S1S2, regular rate and rhythm without overt murmur Abdomen: Soft, nondistended, nontender. Negative for masses or hepatosplenomegaly. Negative for costovertebral tenderness. Pelvis: Stable nontender. Genitourinary: Deferred. Rectal: Deferred. Skin: Urticaria is present on bilateral arms/legs in various scattered areas. There is a large area of erythema over the left armpit that spreads along into the breast and partially across the chest. This area is warm to the touch and a 4cm area of induration without obvious fluctuance. Otherwise, Intact, warm, dry. No lesions or rashes noted. Extremities: Atraumatic, negative for cords or calf pain. Neurovascular unremarkable. Neuro: Awake, alert, oriented. Cranial nerves II through XII unremarkable. Cerebellum unremarkable. Motor and sensory unremarkable throughout. Exam nonfocal. Notes: Dr. Gonzalez directly involved in patient care. Upon reevaluation of patient, she is more comfortable after I&D of abscess. Strict return precautions thoroughly discussed with patient. Discussed the importance for follow up with a primary care provider . Voices understanding and is agreeable to plan of care. Denies any further questions or concerns at this time. Diagnostics: CBC, CMP, Lactate, Blood cultures x 2, Breast/Armpit US Therapeutics: NS, Tylenol, Clindamycin IV, I&D Prescription: Bactrim DS, Clindamycin Impression: Left armpit abscess, superficial Cellulitis, left armpit Plan: 1. Take medication as prescribed. Continue to monitor for worsening vs improving infection as discussed. 2. Return to the ED in 48 hours and reevaluation of packing as discussed. 3. Follow up with a primary care provider as discussed. Return to the ED as needed and as discussed. Definitive disposition and diagnosis as appropriate pending reevaluation and review of above. left arm/left axillary/left breast Pain Score (Numeric/FACES): 7 - Related Data Allergies Allergy/AdvReac Type Severity Reaction Status Date / Time ibuprofen Allergy Severe Other Verified 04/24/20 18:58 Penicillins Allergy Severe Swollen Verified 04/24/20 18:58 Tongue tomato Allergy Hives Verified 04/24/20 18:58 trazodone Allergy Swollen Verified 04/24/20 18:58 Tongue Home Meds: Home Meds Clindamycin HCl 300 mg PO TID 9 Days #30 capsule 04/24/20 [Rx] Past Medical History HEENT History: Reports: Impaired Vision, Other (See Below) Other HEENT History: wears glasses Cardiovascular History: Reports: None Respiratory History: Reports: Asthma Gastrointestinal History: Reports: Irritable Bowel Syndrome Genitourinary History: Reports: None 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: Reports: None Musculoskeletal History: Reports: None Neurological History: Reports: None Psychiatric History: Reports: None Endocrine/Metabolic History: Reports: None Hematologic History: Reports: None Immunologic History: Reports: None Oncologic (Cancer) History: Reports: None Dermatologic History: Reports: None - Infectious Disease History Infectious Disease History: Reports: Chicken Pox - Past Surgical History Head Surgeries/Procedures: Reports: None HEENT Surgical History: Reports: None Cardiovascular Surgical History: Reports: None Respiratory Surgical History: Reports: None GI Surgical History: Reports: None Female Surgical History: Reports: D&C, Tubal Ligation Endocrine Surgical History: Reports: None Neurological Surgical History: Reports: None Musculoskeletal Surgical History: Reports: None Oncologic Surgical History: Reports: None Dermatological Surgical History: Reports: None Social & Family History - Family History Family Medical History: No Pertinent Family History - Tobacco Use Tobacco Use Status *Q: Never Tobacco User - Caffeine Use Caffeine Use: Reports: None - Recreational Drug Use Recreational Drug Use: No ED ROS GENERAL - Review of Systems Review Of Systems: Comprehensive ROS is negative, except as noted in HPI. ED EXAM, SKIN/RASH Exam: See Below (see dictation) ED SKIN PROCEDURES - I&D Site: Left breast/armpit area Skin Prep: Providone-Iodine (Betadine) Local Anesthesia: Lidocaine: 1% Plain Local Anesthetic Volume: Other (10) Area Incised With: 11 Blade Drainage: Purulent, Bloody, Small Amount Probed to Break Up Loculations: Yes Packed With: 1/4 in. Iodoform Sterile Dressing: Adhesive Dressing, 4x4(s) Complications: No Course - Vital Signs Last Recorded V/S: Last Vital Signs Temp 97.0 F 04/24/20 18:59 Pulse 102 H 04/24/20 22:46 Resp 18 04/24/20 22:46 BP 132/86 04/24/20 22:46 Pulse Ox 96 04/24/20 22:46 - Orders/Labs/Meds Orders: Active Orders 24 hr Category Date Time Status CULTURE BLOOD [BC] Stat Lab 04/24/20 19:32 Received CULTURE BLOOD [BC] Stat Lab 04/24/20 20:22 Results CULTURE WOUND [RM] Stat Lab 04/24/20 22:00 Received Blood Culture x2 Reflex Set [OM.PC] Stat Oth 04/24/20 19:09 Ordered Labs: Laboratory Tests 04/24/20 04/24/20 04/24/20 Range/Units 19:32 19:32 19:32 WBC 14.25 H (4.0-11.0) K/uL RBC 4.47 (4.30-5.90) M/uL Hgb 14.7 (12.0-16.0) g/dL Hct 42.6 (36.0-46.0) % MCV 95.3 (80.0-98.0) fL MCH 32.9 H (27.0-32.0) pg MCHC 34.5 (31.0-37.0) g/dL RDW Std Deviation 40.2 (28.0-62.0) fl RDW Coeff of Willy 12 (11.0-15.0) % Plt Count 237 (150-400) K/uL MPV 8.70 (7.40-12.00) fL Neut % (Auto) 69.5 (48.0-80.0) % Lymph % (Auto) 22.0 (16.0-40.0) % Shasta % (Auto) 7.5 (0.0-15.0) % Eos % (Auto) 0.9 (0.0-7.0) % Baso % (Auto) 0.1 (0.0-1.5) % Neut # (Auto) 9.9 H (1.4-5.7) K/uL Lymph # (Auto) 3.1 H (0.6-2.4) K/uL Shasta # (Auto) 1.1 H (0.0-0.8) K/uL Eos # (Auto) 0.1 (0.0-0.7) K/uL Baso # (Auto) 0.0 (0.0-0.1) K/uL Nucleated RBC % 0.0 /100WBC Nucleated RBCs # 0 K/uL Lactate 0.8 (0.20-2.00) mmol/L Sodium 134 L (136-145) mmol/L Potassium 3.5 (3.5-5.1) mmol/L Chloride 101 (98-107) mmol/L Carbon Dioxide 23.3 (21.0-32.0) mmol/L BUN 9 (7.0-18.0) mg/dL Creatinine 1.0 (0.6-1.0) mg/dL Est Cr Clr Drug Dosing 79.11 mL/min Estimated GFR (MDRD) > 60.0 ml/min Glucose 99 (74-106) mg/dL Calcium 8.8 (8.5-10.1) mg/dL Total Bilirubin 1.1 H (0.2-1.0) mg/dL AST 18 (15-37) IU/L ALT 34 (14-63) IU/L Alkaline Phosphatase 82 (46-116) U/L Total Protein 7.5 (6.4-8.2) g/dL Albumin 3.5 (3.4-5.0) g/dL Globulin 4.0 (2.6-4.0) g/dL Albumin/Globulin Ratio 0.9 (0.9-1.6) Meds: Medications Discontinued Medications Generic Name Dose Route Start Last Admin Trade Name Daleq PRN Reason Stop Dose Admin Acetaminophen 1,000 mg 04/24/20 19:11 04/24/20 19:29 Tylenol Extra Strength PO 04/24/20 19:12 1,000 mg ONETIME ONE Administration Clindamycin HCl 900 mg 04/24/20 22:11 04/24/20 22:20 Cleocin PO 04/24/20 22:12 900 mg ONETIME ONE Administration Diphenhydramine HCl 25 mg 04/24/20 19:09 04/24/20 19:28 Benadryl IVPUSH 04/24/20 19:10 25 mg ONETIME ONE Administration Sodium Chloride 1,000 mls @ 999 mls/hr 04/24/20 19:09 04/24/20 19:25 Normal Saline IV 04/24/20 20:09 999 mls/hr STAT ONE Administration Clindamycin Phosphate 450 mg/ 53 mls @ 100 mls/hr 04/24/20 19:43 04/24/20 20:43 Sodium Chloride IV 12/31/20 20:14 Not Given ONETIME ONE Clindamycin Phosphate 600 mg/ 50 mls @ 100 mls/hr 04/24/20 20:33 04/24/20 20:39 Premix IV 04/24/20 21:02 100 mls/hr ONETIME ONE Administration Clindamycin Phosphate Confirm 04/24/20 20:33 04/24/20 20:36 Cleocin In D5w Administered 04/24/20 20:34 Not Given Dose 50 mls @ as directed .ROUTE .STK-MED ONE Lidocaine HCl 10 ml 04/24/20 21:56 04/24/20 22:06 Xylocaine-Mpf 1% INJECT 04/24/20 21:57 10 ml ONETIME ONE Administration Lidocaine HCl Confirm 04/24/20 21:56 04/24/20 22:05 Xylocaine-Mpf 1% Administered 04/24/20 21:57 Not Given Dose 10 ml .ROUTE .STK-MED ONE Methylprednisolone Sodium Succinate 125 mg 04/24/20 19:09 04/24/20 19:27 Solu-Medrol IVPUSH 04/24/20 19:10 125 mg ONETIME ONE Administration Morphine Sulfate 2 mg 04/24/20 22:12 04/24/20 22:20 Morphine IVPUSH 04/24/20 22:13 2 mg ONETIME ONE Administration Departure - Departure Time of Disposition: 22:15 Disposition: Home, Self-Care 01 Clinical Impression: Armpit abscess Cellulitis Qualifiers: Site of cellulitis: extremity Site of cellulitis of extremity: upper extremity Laterality: left Qualified Code(s): L03.114 - Cellulitis of left upper limb - Discharge Information Prescriptions: Clindamycin HCl 300 mg PO TID 9 Days #30 capsule Instructions: Skin Abscess, [id number], Cellulitis, Adult, [id number] Referrals: PCP,None [Primary Care Provider] - Forms: ED Department Discharge Additional Instructions: The following information is given to patients seen in the emergency department who are being discharged to home. This information is to outline your options for follow-up care. We provide all patients seen in our emergency department with a follow-up referral. The need for follow-up, as well as the timing and circumstances, are variable depending upon the specifics of your emergency department visit. If you don't have a primary care physician on staff, we will provide you with a referral. We always advise you to contact your personal physician following an emergency department visit to inform them of the circumstance of the visit and for follow-up with them and/or the need for any referrals to a consulting specialist. The emergency department will also refer you to a specialist when appropriate. This referral assures that you have the opportunity for follow-up care with a specialist. All of these measure are taken in an effort to provide you with optimal care, which includes your follow-up. Under all circumstances we always encourage you to contact your private physician who remains a resource for coordinating your care. When calling for follow-up care, please make the office aware that this follow-up is from your recent emergency room visit. If for any reason you are refused follow-up, please contact the [facility] Emergency Department at and asked to speak to the emergency department charge nurse. [facility] [address] [place] [id number] [facility] [address] [place] [id number] 1. Take medication as prescribed. Continue to monitor for worsening vs improving infection as discussed. 2. Return to the ED in 48 hours and reevaluation of packing as discussed. 3. Follow up with a primary care provider as discussed. Return to the ED as needed and as discussed. Sepsis Event Note (ED) - Evaluation Sepsis Screening Result: Possible Sepsis Risk - My Orders Last 24 Hours: My Active Orders 04/24/20 19:09 Blood Culture x2 Reflex Set [OM.PC] Stat 04/24/20 19:32 CULTURE BLOOD [BC] Stat 04/24/20 20:22 CULTURE BLOOD [BC] Stat 04/24/20 22:00 CULTURE WOUND [RM] Stat - Assessment/Plan Last 24 Hours: My Active Orders 04/24/20 19:09 Blood Culture x2 Reflex Set [OM.PC] Stat 04/24/20 19:32 CULTURE BLOOD [BC] Stat 04/24/20 20:22 CULTURE BLOOD [BC] Stat 04/24/20 22:00 CULTURE WOUND [RM] Stat
[2020-04-24] MEDS: Sodium Chloride 0.9% 1,000 ML IV ONE (19:25)
[2020-04-24] MEDS: methylPREDNISolone Sodium Succinate 125 MG/2 ML SDV IVPUSH ONE (19:27)
[2020-04-24] MEDS: diphenhydrAMINE 50 MG/ML SDV IVPUSH ONE (19:28)
[2020-04-24] MEDS: Acetaminophen 500 MG Tab PO ONE (19:29)
[2020-04-24 20:04] LABS: BLOOD UREA NITROGEN,BUN 9 mg/dL (7.0-18.0); CARBON DIOXIDE,CO2 23.3 mmol/L (21.0-32.0); CHLORIDE,CL 101 mmol/L (98-107); GLUCOSE RANDOM 99 mg/dL (74-106); POTASSIUM,K 3.5 mmol/L (3.5-5.1); SODIUM,NA 134 mmol/L (136-145)
[2020-04-24] MEDS: Clindamycin Phosphate in D5W 50 ML ONE (20:36)
[2020-04-24] MEDS: Clindamycin Phosphate in D5W 600 MG in Premix Bag 1 BAG IV ONE ×2 (20:39)
[2020-04-24] MEDS: Clindamycin HCl 150 MG Cap PO ONE (22:20)
[2020-04-24] MEDS: Morphine 2 MG/ML SYRINGE IVPUSH ONE (22:20)
--- NOTE | 2020-04-24 23:06 | US ---
--- Preliminary Report --- --US Breast Left-- Prelim: 1.3 x 0.6 x 0.9cm hypoechoic area in the left armpit may represent a small abscess. 2.1 x 1.4 x 1.5 heterogeneous, solid appearing area in zone 3 at 12 o`clock may represent abscess/phlegmon. No blood flow in either of these areas of abnormality. Preliminary Report by Dr. Fabby Shelton @ Apr 24 2020 11:05PM --- Preliminary Report ---
== END 2020-04-24 22:47 | disposition home or self-care (01) ==
LOC: MW.ED 18:41 → EEVIPCON 18:41 → MW.ED 22:47
DX: L03.114 Cellulitis of left upper limb (principal); L02.412 Cutaneous abscess of left axilla; J45.909 Unspecified asthma, uncomplicated; Z88.6 Allergy status to analgesic agent; Z88.0 Allergy status to penicillin; Z88.5 Allergy status to narcotic agent; Z91.018 Allergy to other foods
CPT/HCPCS: 10060; 10061; 36415; 76642-LT; 80053; 83605; 85025; 87040; 87070; 87077; 87186; 96365; 96375; 99284; 99284-25; A9270-GY; J1200; J2001; J2270; J2930; J3490; J7030

== ENCOUNTER 2020-11-09 16:23 | Emergency (ER) | payer OTHER ==
[2020-11-09] MEDS ORDERED: methylPREDNISolone Sodium Succinate 125 MG/2 ML SDV IVPUSH ONE (16:26)
[2020-11-09] MEDS ORDERED: Famotidine 20 MG/2 ML SDV IVPUSH ONE ×2 (16:26→16:28)
[2020-11-09] MEDS ORDERED: Famotidine 20 MG/2 ML SDV ONE ×2 (16:26→16:29)
[2020-11-09] MEDS ORDERED: diphenhydrAMINE 50 MG/ML SDV IVPUSH ONE (16:26)
[2020-11-09] MEDS ORDERED: diphenhydrAMINE 50 MG/ML SDV ONE (16:26)
[2020-11-09] MEDS ORDERED: methylPREDNISolone Sodium Succinate 125 MG/2 ML SDV ONE (16:26)
--- NOTE | 2020-11-09 16:36 | EDM.PDOC ---
ED HPI GENERAL MEDICAL PROBLEM - General Stated Complaint: ALERGIC REACTION Time Seen by Provider: 11/09/20 16:26 Source of Information: Reports: Patient History Limitations: Reports: No Limitations - History of Present Illness INITIAL COMMENTS - FREE TEXT/NARRATIVE: HISTORY AND PHYSICAL: History of present illness: Patient is a 25-year-old female who presents to the ED today with concern of allergic reaction. Patient states this morning when she woke up she began developing swelling of her eyes, hives, and says she feels like she has swelling of the left side of her tongue. Patient states she took 50 mg of Benadryl when this happened and took a nap. Patient states that her boyfriend woke her up to check on her and felt that she needed to come to the emergency room for evaluation. Patient states she had formal allergy testing done 1 month ago and was told she was not allergic to anything. Patient states that she has been having issues with hives off and on which is why she had the allergy testing done. Patient states she has a history of tubal ligation so is not . Patient states she has anxiety, depression, and thyroid issues but denies any other health history. Patient denies any difficulty breathing. Patient denies fever, chills, chest pain, shortness of breath, or cough. Denies headache, neck stiff ness, change in vision, syncope, or near syncope. Denies nausea, vomiting, abdominal pain, diarrhea, constipation, or dysuria. Has not noted any blood in urine or stool. Patient has been eating and drinking appropriately. Review of systems: As per history of present illness and below otherwise all systems reviewed and negative. Past medical history: As per history of present illness and as reviewed below otherwise noncontributory. Surgical history: As per history of present illness and as reviewed below otherwise noncontributory. Social history: See social history for further information Family history: As per history of present illness and as reviewed below otherwise noncontributory. Physical exam: General: Patient is alert, oriented, and in no acute distress. Patient sitting comfortably on exam table. Vitals stable and reviewed by me. HEENT: No lip edema, tongue edema, or oropharyngeal edema. No stridor. Patient does have edema without erythema noted to her bilateral upper eyelids with urticaria noted to her face. Otherwise, atraumatic, normocephalic, pupils equal and reactive bilaterally, negative for conjunctival pallor or scleral icterus, mucous membranes moist, TMs normal bilaterally, throat clear, neck supple, nontender, trachea midline. No drooling or trismus noted. No meningeal signs. No hot potato voice noted. Lungs: Clear to auscultation, breath sounds equal bilaterally, chest nontender. Heart: S1S2, regular rate and rhythm without overt murmur Abdomen: Soft, nondistended, nontender. Negative for masses or hepatosplenomegaly. Negative for costovertebral tenderness. Pelvis: Stable nontender. Genitourinary: Deferred. Rectal: Deferred. Skin: Intact, warm, dry. No lesions or rashes noted. Extremities: Atraumatic, negative for cords or calf pain. Neurovascular unremarkable. Neuro: Awake, alert, oriented. Cranial nerves II through XII unremarkable. Cerebellum unremarkable. Motor and sensory unremarkable throughout. Exam nonfocal. Notes: Patient is a 25-year-old female who presents emergency room today with concern of allergic reaction including eye swelling, hives, and feeling as if her tongue is swollen on the left. Upon arrival to the ED, patient is vitally stable and well-appearing on exam but is noted to have bilateral eyelid edema and urticaria of the face. Patient notes that she feels as if her tongue is swollen, however, I do not appreciate any swelling on exam. No lip edema, or oropharyngeal edema or stridor on exam. Upon reexamination of patient, she has improving swelling of her eyes and never developed any oropharyngeal, tongue, or lip edema. She does not develop any stridor or difficulties breathing. She expresses improvement of her symptoms. Patient remains vitally stable and comfortable throughout stay in ED. Strict return precautions thoroughly discussed with patient. Discussed importance for follow-up with a primary care provider. Voices understanding and is agreeable to plan of care. Denies any further questions or concerns at this time. Diagnostics: None Therapeutics: Solu-Medrol, Benadryl, famotidine Prescription: EpiPen, prednisone Impression: Allergic reaction Plan: 1. Avoid triggers. Continue to monitor for possible exposures/triggers/foods. Take medication as prescribed. 2. While symptomatic continue to routinely take Benadryl 50mg every 4-6 hours and Zantac 150mg twice daily. 3. Carry your Epi-Pen with you at all times. Use in the case of an emergency and call 911 and/or present to the ER. 4. You may use topical calamine lotion, cool tempid oatmeal baths, Aveeno bath/lotions. 5. Please follow up with your Primary care provider as discussed. Return to the ED as needed and as discussed. Definitive disposition and diagnosis as appropriate pending reevaluation and review of above. - Related Data Allergies Allergy/AdvReac Type Severity Reaction Status Date / Time ibuprofen Allergy Severe Other Verified 11/09/20 16:34 Penicillins Allergy Severe Swollen Verified 11/09/20 16:34 Tongue tomato Allergy Hives Verified 11/09/20 16:34 trazodone Allergy Swollen Verified 11/09/20 16:34 Tongue Home Meds: Home Meds Clindamycin HCl 300 mg PO TID 9 Days #30 capsule 04/24/20 [Rx] Anxiety 11/09/20 [History] EPINEPHrine [Epipen] 0.3 mg IM ASDIRECTED PRN #1 pen 11/09/20 [Rx] FLUoxetine [PROzac] 10 mg PO DAILY 11/09/20 [History] Thyroid Medication 11/09/20 [History] predniSONE [Prednisone] 40 mg PO DAILY 5 Days #5 tablet 11/09/20 [Rx] Past Medical History HEENT History: Reports: Impaired Vision, Other (See Below) Other HEENT History: wears glasses Cardiovascular History: Reports: None Respiratory History: Reports: Asthma Gastrointestinal History: Reports: Irritable Bowel Syndrome Genitourinary History: Reports: None [employer] History: Reports: None Musculoskeletal History: Reports: None Neurological History: Reports: None Psychiatric History: Reports: None Endocrine/Metabolic History: Reports: None Hematologic History: Reports: None Immunologic History: Reports: None Oncologic (Cancer) History: Reports: None Dermatologic History: Reports: None - Infectious Disease History Infectious Disease History: Reports: Chicken Pox - Past Surgical History Head Surgeries/Procedures: Reports: None HEENT Surgical History: Reports: None Cardiovascular Surgical History: Reports: None Respiratory Surgical History: Reports: None GI Surgical History: Reports: None Female Surgical History: Reports: D&C, Tubal Ligation Endocrine Surgical History: Reports: None Neurological Surgical History: Reports: None Musculoskeletal Surgical History: Reports: None Oncologic Surgical History: Reports: None Dermatological Surgical History: Reports: None Social & Family History - Family History Family Medical History: No Pertinent Family History - Caffeine Use Caffeine Use: Reports: None ED ROS GENERAL - Review of Systems Review Of Systems: Comprehensive ROS is negative, except as noted in HPI. ED EXAM, GENERAL - Physical Exam Exam: See Below (see dictation) Course - Vital Signs Last Recorded V/S: Last Vital Signs Temp 98.2 F 11/09/20 16:35 Pulse 75 11/09/20 17:35 Resp 20 11/09/20 16:35 BP 142/76 H 11/09/20 17:35 Pulse Ox 97 11/09/20 17:35 - Orders/Labs/Meds Meds: Medications Discontinued Medications Generic Name Dose Route Start Last Admin Trade Name Freq PRN Reason Stop Dose Admin Diphenhydramine HCl 25 mg 11/09/20 16:26 11/09/20 16:32 Diphenhydramine 50 Mg/Ml Sdv IVPUSH 11/09/20 16:27 25 mg ONETIME ONE Administration Diphenhydramine HCl Confirm 11/09/20 16:26 11/09/20 16:33 Diphenhydramine 50 Mg/Ml Sdv Administered 11/09/20 16:27 Not Given Dose 50 mg .ROUTE .STK-MED ONE Famotidine 20 mg 11/09/20 16:26 11/09/20 16:33 Famotidine 20 Mg/2 Ml Sdv IVPUSH 11/09/20 16:27 20 mg ONETIME ONE Administration Famotidine Confirm 11/09/20 16:26 11/09/20 16:33 Famotidine 20 Mg/2 Ml Sdv Administered 11/09/20 16:27 Not Given Dose 20 mg .ROUTE .STK-MED ONE Famotidine 20 mg 11/09/20 16:28 11/09/20 16:32 Famotidine 20 Mg/2 Ml Sdv IVPUSH 11/09/20 16:29 20 mg ONETIME ONE Administration Famotidine Confirm 11/09/20 16:29 11/09/20 16:34 Famotidine 20 Mg/2 Ml Sdv Administered 11/09/20 16:30 Not Given Dose 20 mg .ROUTE .STK-MED ONE Methylprednisolone Sodium Succinate 125 mg 11/09/20 16:26 11/09/20 16:33 Methylprednisolone Sodium Succinate 125 Mg/2 Ml Sdv IVPUSH 11/09/20 16:27 125 mg ONETIME ONE Administration Methylprednisolone Sodium Succinate Confirm 11/09/20 16:26 11/09/20 16:33 Methylprednisolone Sodium Succinate 125 Mg/2 Ml Sdv Administered 11/09/20 16:27 Not Given Dose 125 mg .ROUTE .STK-MED ONE Departure - Departure Time of Disposition: 17:34 Disposition: Home, Self-Care 01 Clinical Impression: Allergic reaction Qualifiers: Encounter type: initial encounter Qualified Code(s): T78.40XA - Allergy, unspecified, initial encounter - Discharge Information Prescriptions: EPINEPHrine [Epipen] 0.3 mg IM ASDIRECTED PRN #1 pen PRN Reason: Edema predniSONE [Prednisone] 40 mg PO DAILY 5 Days #5 tablet Instructions: Allergies, Adult, [id number] Referrals: PCP,None [Primary Care Provider] - Forms: ED Department Discharge Additional Instructions: The following information is given to patients seen in the emergency department who are being discharged to home. This information is to outline your options for follow-up care. We provide all patients seen in our emergency department with a follow-up referral. The need for follow-up, as well as the timing and circumstances, are variable depending upon the specifics of your emergency department visit. If you don't have a primary care physician on staff, we will provide you with a referral. We always advise you to contact your personal physician following an emergency department visit to inform them of the circumstance of the visit and for follow-up with them and/or the need for any referrals to a consulting specialist. The emergency department will also refer you to a specialist when appropriate. This referral assures that you have the opportunity for follow-up care with a specialist. All of these measure are taken in an effort to provide you with optimal care, which includes your follow-up. Under all circumstances we always encourage you to contact your private renetta mitchell who remains a resource for coordinating your care. When calling for follow-up care, please make the office aware that this follow-up is from your recent emergency room visit. If for any reason you are refused follow-up, please contact the [facility] Emergency Department at and asked to speak to the emergency department charge nurse. [facility] [address] [place] [id number] [facility] [address] [place] [id number] 1. Avoid triggers. Continue to monitor for possible exposures/triggers/foods. Take medication as prescribed. 2. While symptomatic continue to routinely take Benadryl 50mg every 4-6 hours and Zantac 150mg twice daily. 3. Carry your Epi-Pen with you at all times. Use in the case of an emergency and call 911 and/or present to the ER. 4. You may use topical calamine lotion, cool tempid oatmeal baths, Aveeno bath/lotions. 5. Please follow up with your Primary care provider as discussed. Return to the ED as needed and as discussed. Sepsis Event Note (ED) - Focused Exam Vital Signs: Vital Signs Temp Pulse Resp BP Pulse Ox 11/09/20 17:35 75 142/76 H 97 11/09/20 16:35 98.2 F 77 20 118/70 98
== END 2020-11-09 17:51 | disposition home or self-care (01) ==
LOC: MW.ED 16:23
DX: T78.40XA Allergy, unspecified, initial encounter (principal); J45.909 Unspecified asthma, uncomplicated; Z88.6 Allergy status to analgesic agent; Z88.0 Allergy status to penicillin; Z91.018 Allergy to other foods; Z79.899 Other long term (current) drug therapy
CPT/HCPCS: 96374; 96375; 99283; J1200; J2930; J3490; 99284

== ENCOUNTER 2020-11-11 21:03 | Emergency (ER) | payer OTHER ==
--- NOTE | 2020-11-11 22:45 | EDM.PDOC ---
ED HPI GENERAL MEDICAL PROBLEM - General Chief Complaint: Lower Extremity Injury/Pain Stated Complaint: POSSIBLE BROKEN BONE LT FOOT Time Seen by Provider: 11/11/20 22:00 - History of Present Illness INITIAL COMMENTS - FREE TEXT/NARRATIVE: HISTORY AND PHYSICAL: History of present illness: This is a 25-year-old female who presents ER today secondary to pain to her left lateral malleolus secondary to an inversion injury that occurred shortly prior to arrival. Patient reports that she went out to walk her dog and lost her footing on a rock and her dog pulled her forward and she inverted her left ankle and has been having pain since. Patient reports she was able to weight-bear but with a significant pain discomfort. Patient denies any other pain or discomfort anywhere else. Patient has any head trauma or injury. Patient has any pain to her upper extremities or her right lower extremity. Patient has any pain or discomfort to her hip or pelvis. Review of systems: As per history of present illness and below otherwise all systems reviewed and negative. Past medical history: As per history of present illness and as reviewed below otherwise noncontributory. Surgical history: As per history of present illness and as reviewed below otherwise noncontributory. Social history: No reported history of drug abuse. Family history: As per history of present illness and as reviewed below otherwise noncontributo ry. Physical exam: This patient was seen and evaluated during the 2019 SARS-CoV-2 novel coronavirus pandemic period. Community viral transmission is ongoing at time of this encounter and the emergency department is operating under pandemic response procedures. Constitutional: Patient is oriented to person, place, and time. Appears well- developed and well-nourished. No distress. HEENT: Moist mucous membranes Head: Normocephalic and atraumatic Eyes: Right eye exhibits no discharge. Left eye exhibits no discharge. No scleral icterus Neck: Normal range of motion. No tracheal deviation present. Cardiovascular: Normal rate and regular rhythm. Pulmonary: Effort normal, no respiratory distress. Abdominal: No distention Musculoskeletal: Normal range of motion Neurologic: Alert and oriented to person, place and time. Skin: [place], warm and dry. Psychiatric: Normal mood and affect. Behavior is normal. Judgment and thought content normal. Nursing note and vital signs have been reviewed Patient with tenderness on palpation to her left lateral malleolus and deltoid ligament region. Patient has no tenderness over the fifth metatarsal area. Patient has soft tissue swelling to her lateral malleolus. Diagnostics: X-ray of left ankle reveals no acute fracture dislocation. Therapeutics: Ultram 50 mg p.o., Tylenol 650 mg p.o. Velcro ankle splint. Assessment and plan: 25-year-old female who presents to the ER today secondary to an inversion injury of her left ankle. Patient's x-rays negative for any acute fracture. Patient has been given Ultram, Tylenol I will place in a Velcro splint. Patient will need to follow-up with her primary care physician 1 week for reevaluation. DME note: A Velcro air splint will be applied to her left ankle secondary to ligamentous injury to her left ankle. This will help immobilize the ankle so that the ligament can heal appropriately. This will need to be in place for 2 weeks. Reassessment at the time of disposition demonstrates that the patient is in no acute distress. The patient has remained stable throughout the entire ED visit and is without objective evidence for acute process requiring urgent intervention or hospitalization. The patient is stable for discharge, counseling is provided as documented above, discussed symptomatic treatment and specific conditions for return. I have spoken with the patient/caregiver and discussed todays findings, in addition to providing specific details for the plan of care. Questions are answered and there is agreement with the plan. Definitive disposition and diagnosis as appropriate pending reevaluation and review of above. Left Ankle Pain Score (Numeric/FACES): 5 - Related Data Allergies Allergy/AdvReac Type Severity Reaction Status Date / Time ibuprofen Allergy Severe Other Verified 11/09/20 16:34 Penicillins Allergy Severe Swollen Verified 11/09/20 16:34 Tongue tomato Allergy Hives Verified 11/09/20 16:34 trazodone Allergy Swollen Verified 11/09/20 16:34 Tongue Home Meds: Home Meds Clindamycin HCl 300 mg PO TID 9 Days #30 capsule 04/24/20 [Rx] Anxiety 11/09/20 [History] EPINEPHrine [Epipen] 0.3 mg IM ASDIRECTED PRN #1 pen 11/09/20 [Rx] FLUoxetine [PROzac] 10 mg PO DAILY 11/09/20 [History] Thyroid Medication 11/09/20 [History] predniSONE [Prednisone] 40 mg PO DAILY 5 Days #5 tablet 07/18/21 [Rx] Past Medical History - Past Health History Medical/Surgical History: Denies Medical/Surgical History HEENT History: Reports: Impaired Vision, Other (See Below) Other HEENT History: wears glasses Cardiovascular History: Reports: None Respiratory History: Reports: Asthma Gastrointestinal History: Reports: Irritable Bowel Syndrome Genitourinary History: Reports: None [employer] History: Reports: None Musculoskeletal History: Reports: None Neurological History: Reports: None Psychiatric History: Reports: None Endocrine/Metabolic History: Reports: None Hematologic History: Reports: None Immunologic History: Reports: None Oncologic (Cancer) History: Reports: None Dermatologic History: Reports: None - Infectious Disease History Infectious Disease History: Reports: Chicken Pox - Past Surgical History Head Surgeries/Procedures: Reports: None HEENT Surgical History: Reports: None Cardiovascular Surgical History: Reports: None Respiratory Surgical History: Reports: None GI Surgical History: Reports: None Female Surgical History: Reports: D&C, Tubal Ligation Endocrine Surgical History: Reports: None Neurological Surgical History: Reports: None Musculoskeletal Surgical History: Reports: None Oncologic Surgical History: Reports: None Dermatological Surgical History: Reports: None Social & Family History - Family History Family Medical History: No Pertinent Family History - Tobacco Use Tobacco Use Status *Q: Never Tobacco User - Caffeine Use Caffeine Use: Reports: Coffee - Recreational Drug Use Recreational Drug Use: No Review of Systems - Review of Systems Review Of Systems: See Below ED EXAM, GENERAL - Physical Exam Exam: See Below Course - Vital Signs Last Recorded V/S: Last Vital Signs Temp 97.3 F 11/11/20 21:52 Pulse 98 11/11/20 21:52 Resp 18 11/11/20 21:52 BP 135/98 H 11/11/20 21:52 Pulse Ox 97 11/11/20 21:52 - Orders/Labs/Meds Orders: Active Orders 24 hr Category Date Time Status Ankle Min 3V Lt [CR] Stat Exams 11/11/20 22:27 Taken Acetaminophen [TylenoL] Med 11/11/20 22:39 Once 650 mg PO NOW ONE traMADol [Ultram] Med 11/11/20 22:39 Once 50 mg PO ONETIME ONE Departure - Departure Time of Disposition: 22:44 Disposition: Home, Self-Care 01 Condition: Good Clinical Impression: Left ankle sprain Qualifiers: Encounter type: initial encounter Involved ligament of ankle: unspecified ligament Qualified Code(s): S93.402A - Sprain of unspecified ligament of left ankle, initial encounter - Discharge Information Instructions: Ankle Sprain Referrals: PCP,None [Primary Care Provider] - Additional Instructions: Your seen and evaluated in ER today secondary to sprain to your left ankle. The x-ray did not reveal any fracture dislocation of your ankle. You will be placed in a Velcro splint to assist with immobilizing your ankle so that it can help heal faster. Please keep your legs elevated, rest, ice for the next several days. Please make an appointment to see your family doctor within a week for reevaluation if the pain is not improved. You can take [id number] acetaminophen to assist with pain and discomfort The following information is given to patients seen in the emergency department who are being discharged to home. This information is to outline your options for follow-up care. We provide all patients seen in our emergency department with a follow-up referral. The need for follow-up, as well as the timing and circumstances, are variable depending upon the specifics of your emergency department visit. If you don't have a primary care physician on staff, we will provide you with a referral. We always advise you to contact your personal physician following an emergency department visit to inform them of the circumstance of the visit and for follow-up with them and/or the need for any referrals to a consulting specialist. The emergency department will also refer you to a specialist when appropriate. This referral assures that you have the opportunity for follow-up care with a specialist. All of these measure are taken in an effort to provide you with optimal care, which includes your follow-up. Under all circumstances we always encourage you to contact your private physician who remains a resource for coordinating your care. When calling for follow-up care, please make the office aware that this follow-up is from your recent emergency room visit. If for any reason you are refused follow-up, please contact the [facility] Emergency Department at and asked to speak to the emergency department charge nurse. [facility] - Primary [facility] [address] [place] [address] [id number] [address] [address] Sepsis Event Note (ED) - Evaluation Sepsis Screening Result: No Definite Risk - Focused Exam Vital Signs: Vital Signs Temp Pulse Resp BP Pulse Ox 11/11/20 21:52 97.3 F 98 18 135/98 H 97 - My Orders Last 24 Hours: My Active Orders 11/11/20 22:27 Ankle Min 3V Lt [CR] Stat 11/11/20 22:39 Acetaminophen [TylenoL] 650 mg PO NOW ONE traMADol [Ultram] 50 mg PO ONETIME ONE - Assessment/Plan Last 24 Hours: My Active Orders 11/11/20 22:27 Ankle Min 3V Lt [CR] Stat 11/11/20 22:39 Acetaminophen [TylenoL] 650 mg PO NOW ONE traMADol [Ultram] 50 mg PO ONETIME ONE
[2020-11-11] MEDS: Acetaminophen 325 MG Tab PO ONE (22:59)
[2020-11-11] MEDS: traMADol 50 MG Tab PO ONE (22:59)
--- NOTE | 2020-11-11 23:05 | CR ---
HISTORY: Left ankle pain. TECHNIQUE: Three views of left ankle. COMPARISON: No prior. FINDINGS: There is no acute fracture. No widening of the ankle mortise. There is spurring at the Achilles attachment to posterior calcaneus. One of the sesamoid bones is bipartite. IMPRESSION: No acute fracture or malalignment. Dictated by Myron Hull MD @ 11/11/2020 11:04:[address] Myron Hull @ Nov 11 2020 11:04PM
== END 2020-11-11 23:05 | disposition home or self-care (01) ==
LOC: MW.ED 21:03
DX: S93.402A Sprain of unspecified ligament of left ankle, initial encounter (principal); J45.909 Unspecified asthma, uncomplicated; Z88.6 Allergy status to analgesic agent; Z88.0 Allergy status to penicillin; Z88.5 Allergy status to narcotic agent; Z91.018 Allergy to other foods; Z79.899 Other long term (current) drug therapy; X50.1XXA Overexertion from prolonged static or awkward postures, initial encounter; Y93.01 Activity, walking, marching and hiking
CPT/HCPCS: 73610; 99283; A9270

== ENCOUNTER 2021-03-16 23:54 | Emergency (ER) | payer OTHER ==
[2021-03-17] MEDS ORDERED: traMADol 50 MG Tab PO ONE (00:51)
[2021-03-17] MEDS ORDERED: Acetaminophen 325 MG Tab PO ONE (00:56)
--- NOTE | 2021-03-17 00:57 | EDM.PDOC ---
ED HPI GENERAL MEDICAL PROBLEM - General Chief Complaint: General Stated Complaint: SHORTNESS OF BREAH, PAIN AND LT SIDE NUMBNESS Time Seen by Provider: 03/17/21 00:45 - History of Present Illness INITIAL COMMENTS - FREE TEXT/NARRATIVE: HISTORY AND PHYSICAL: History of present illness: This a 26-year-old female with history significant for rheumatological issues, chronic infections, proteinuria, status post D&C, status post bilateral fallopian tube removal, who presents ER today secondary to pain and discomfort to her left arm and leg and her entire left side of her body. Patient reports that she works at [employer] and does a lot of heavy lifting. Patient denies any recent fevers, shakes, chills, nausea, vomiting, diarrhea, dysuria, frequency, urgency, chest pain, shortness of breath, abdominal pain or discomfort. Patient denies any weakness to her upper or lower extremity and reports that her concern is more the pain that she is experiencing. Patient reports that she is supposed to work tonight. Patient reports that she is able to ambulate with normal gait. Patient reports that she feels that her hand mover is slightly diminished but feels that it is because of pain and discomfort when she tries to squeeze her arm. Patient denies any double vision or blurred vision. Patient has any weakness to her face or slurring her speech. Patient has any facial asymmetry. Patient denies any double vision or blurred vision. Patient denies any ataxia or difficulty walking. Patient denies any vertigo. Review of systems: As per history of present illness and below otherwise all systems reviewed and negative. Past medical history: As per history of present illness and as reviewed below otherwise noncontributory. Surgical history: As per history of present illness and as reviewed below otherwise nonco ntributory. Social history: No reported history of drug abuse. Family history: As per history of present illness and as reviewed below otherwise noncontributory. Physical exam: This patient was seen and evaluated during the 2019 SARS-CoV-2 novel coronavirus pandemic period. Community viral transmission is ongoing at time of this encounter and the emergency department is operating under pandemic response procedures. Constitutional: Patient is oriented to person, place, and time. Appears well- developed and well-nourished. No distress. HEENT: Moist mucous membranes Head: Normocephalic and atraumatic Eyes: Right eye exhibits no discharge. Left eye exhibits no discharge. No scleral icterus Neck: Normal range of motion. No tracheal deviation present. Cardiovascular: Normal rate and regular rhythm. Pulmonary: Effort normal, no respiratory distress. Abdominal: No distention Musculoskeletal: Normal range of motion Neuro: A&Ox3. Cranial nerves II-XII grossly intact, 5/5 strength to bilateral upper and lower extremities, sensation intact to bilateral upper and lower extremities, no nystagmus, PERRLA, EOMI, normal speech, gait normal. No pronator drift. Skin: Mize, warm and dry. Psychiatric: Normal mood and affect. Behavior is normal. Judgment and thought content normal. Nursing note and vital signs have been reviewed Diagnostics: [] Therapeutics: Ultram Assessment and plan: 26-year-old female who presents ER today secondary to pain to the left side of her body times 10 PM. Patient reports that she works at [employer] at nighttime and yesterday she did a lot of heavy lifting. Patient's physical exam in the ER is unremarkable. Patient does have some reproducible tenderness to palpation to her left upper extremity. Patient is able to ambulate in the ER with stable gait. Patient has no pronator drift and no evidence of weakness. Patient has no evidence of vascular compromise. Patient has no evidence of stroke. Patient has no tenderness to her cervical, lumbar, thoracic spine. Based on careful history and physical examination I feel this patient's symptoms is most likely from simple musculoskeletal cause and there is low clinical suspicion for more serious pathology such as spinal infectious process, epidural hematoma or malignant process. I also feel that the pain is unlikely to represent pathology outside of the musculoskeletal system and has a low likelihood of being a presentation of aortic disease, GI cause or retroperitoneal hemorrhage. The patient's evaluation does not reveal any red flags given her normal neurologic examination believe they are safe for outpatient follow-up with no further intervention at this time. No history suggestive of trauma or anticoagulation use. Definitive disposition and diagnosis as appropriate pending reevaluation and review of above. Left Trunk Pain Score (Numeric/FACES): 4 - Related Data Allergies Allergy/AdvReac Type Severity Reaction Status Date / Time ibuprofen Allergy Severe Other Verified 03/17/21 00:35 Penicillins Allergy Severe Swollen Verified 03/17/21 00:35 Tongue tomato Allergy Hives Verified 03/17/21 00:35 trazodone Allergy Swollen Verified 03/17/21 00:35 Tongue Home Meds: Home Meds EPINEPHrine [Epipen] 0.3 mg IM ASDIRECTED PRN #1 pen 11/09/20 [Rx] FLUoxetine [PROzac] 10 mg PO DAILY 11/09/20 [History] Thyroid Medication 11/09/20 [History] traMADol [Ultram] 50 mg PO Q6H PRN #6 tab 03/17/21 [Rx] Past Medical History - Past Health History Medical/Surgical History: Denies Medical/Surgical History HEENT History: Reports: Impaired Vision, Other (See Below) Other HEENT History: wears glasses Cardiovascular History: Reports: None Respiratory History: Reports: Asthma Gastrointestinal History: Reports: Irritable Bowel Syndrome Genitourinary History: Reports: None [employer]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 Musculoskeletal History: Reports: None Neurological History: Reports: None Psychiatric History: Reports: None Endocrine/Metabolic History: Reports: None Hematologic History: Reports: None Immunologic History: Reports: None Oncologic (Cancer) History: Reports: None Dermatologic History: Reports: None - Infectious Disease History Infectious Disease History: Reports: Chicken Pox - Past Surgical History Head Surgeries/Procedures: Reports: None HEENT Surgical History: Reports: None Cardiovascular Surgical History: Reports: None Respiratory Surgical History: Reports: None GI Surgical History: Reports: None Female Surgical History: Reports: D&C, Tubal Ligation Endocrine Surgical History: Reports: None Neurological Surgical History: Reports: None Musculoskeletal Surgical History: Reports: None Oncologic Surgical History: Reports: None Dermatological Surgical History: Reports: None Social & Family History - Family History Family Medical History: No Pertinent Family History - Tobacco Use Tobacco Use Status *Q: Never Tobacco User - Caffeine Use Caffeine Use: Reports: Coffee - Recreational Drug Use Recreational Drug Use: No ED ROS GENERAL - Review of Systems Review Of Systems: See Below ED EXAM, GENERAL - Physical Exam Exam: See Below Course - Vital Signs Last Recorded V/S: Last Vital Signs Temp 97.3 F 03/17/21 00:38 Pulse 71 03/17/21 00:38 Resp 18 03/17/21 00:38 BP 139/90 03/17/21 00:38 Pulse Ox 97 03/17/21 00:38 - Orders/Labs/Meds Meds: Medications Discontinued Medications Generic Name Dose Route Start Last Admin Trade Name Freq PRN Reason Stop Dose Admin Acetaminophen 650 mg 03/17/21 00:56 03/17/21 01:02 Acetaminophen 325 Mg Tab PO 03/17/21 00:57 650 mg NOW ONE Administration Tramadol HCl 50 mg 03/17/21 00:51 03/17/21 01:02 Tramadol 50 Mg Tab PO 03/17/21 00:52 50 mg ONETIME ONE Administration Departure - Departure Time of Disposition: 00:55 Disposition: Home, Self-Care 01 Condition: Good Clinical Impression: Musculoskeletal pain - Discharge Information Prescriptions: traMADol [Ultram] 50 mg PO Q6H PRN #6 tab PRN Reason: Pain Instructions: Musculoskeletal Pain Referrals: PCP,None [Primary Care Provider] - Forms: ED Department Discharge Additional Instructions: You were seen and evaluated in ER today secondary to pain to the left side of your body. Your exam is essentially unremarkable except for the pain and discomfort that you are complaining about. This is most likely related to musculoskeletal discomfort may be from the amount of work you are doing a good job. You will be given a dose of tramadol here in the ED as well as acetaminophen help you with your pain and discomfort. Please make an appointment see your family doctor tomorrow for reevaluation if your symptoms not improving. Please return to the ER if you develop any new or concerning symptoms. The following information is given to patients seen in the emergency department who are being discharged to home. This information is to outline your options for follow-up care. We provide all patients seen in our emergency department with a follow-up referral. The need for follow-up, as well as the timing and circumstances, are variable depending upon the specifics of your emergency department visit. If you don't have a primary care physician on staff, we will provide you with a referral. We always advise you to contact your personal physician following an emergency department visit to inform them of the circumstance of the visit and for follow-up with them and/or the need for any referrals to a consulting specialist. The emergency department will also refer you to a specialist when appropriate. This referral assures that you have the opportunity for follow-up care with a specialist. All of these measure are taken in an effort to provide you with optimal care, which includes your follow-up. Under all circumstances we always encourage you to contact your private physician who remains a resource for coordinating your care. When calling for follow-up care, please make the office aware that this follow-up is from your recent emergency room visit. If for any reason you are refused follow-up, please contact the [facility] Emergency Department at and asked to speak to the emergency department charge nurse. Gene [place] [facility] [address] [place] [id number] [address] Sepsis Event Note (ED) - Evaluation Sepsis Screening Result: No Definite Risk - Focused Exam Vital Signs: Vital Signs Temp Pulse Resp BP Pulse Ox 03/17/21 00:38 97.3 F 71 18 139/90 97
== END 2021-03-17 01:15 | disposition home or self-care (01) ==
LOC: MW.ED 23:54
DX: M79.602 Pain in left arm (principal); Z88.6 Allergy status to analgesic agent; Z88.0 Allergy status to penicillin; Z91.018 Allergy to other foods; Z88.5 Allergy status to narcotic agent; Z79.899 Other long term (current) drug therapy; J45.909 Unspecified asthma, uncomplicated
CPT/HCPCS: 99283; A9270

== ENCOUNTER 2021-06-15 19:19 | Emergency (ER) | payer OTHER | END 2021-06-15 19:37 | disposition home or self-care (01) | LOC: MW.ED 19:19 | DX: L08.9 Local infection of the skin and subcutaneous tissue, unspecified (principal); B95.8 Unspecified staphylococcus as the cause of diseases classified elsewhere; Z88.0 Allergy status to penicillin; Z88.8 Allergy status to other drugs, medicaments and biological substances; Z79.899 Other long term (current) drug therapy | CPT/HCPCS: 99282; 99283 ==

== ENCOUNTER 2021-11-16 04:20 | Emergency (ER) | payer OTHER | END 2021-11-16 04:38 | disposition home or self-care (01) | LOC: MW.ED 04:20 | DX: H61.001 Unspecified perichondritis of right external ear (principal); Z88.6 Allergy status to analgesic agent; Z88.0 Allergy status to penicillin; Z91.018 Allergy to other foods; Z88.8 Allergy status to other drugs, medicaments and biological substances; Z79.899 Other long term (current) drug therapy | CPT/HCPCS: 99282; 99283 ==

== ENCOUNTER 2022-09-16 13:29 | Emergency (ER) | payer BC ==
[2022-09-16] MEDS ORDERED: predniSONE 20 MG Tab PO ONE (14:15)
== END 2022-09-16 14:48 | disposition home or self-care (01) ==
LOC: MW.ED 13:29
DX: T78.40XA Allergy, unspecified, initial encounter (principal); J45.909 Unspecified asthma, uncomplicated; Z88.0 Allergy status to penicillin; Z91.018 Allergy to other foods; Z88.8 Allergy status to other drugs, medicaments and biological substances
CPT/HCPCS: 99283; A9270

== ENCOUNTER 2022-12-30 18:34 | Emergency (ER) | payer SELFPAY ==
[2022-12-30] MEDS ORDERED: Sodium Chloride 0.9% 2.5 ML Syringe FLUSH PRN (19:19)
[2022-12-30] MEDS ORDERED: Sodium Chloride 0.9% 1,000 ML IV STA (19:19)
[2022-12-30] MEDS ORDERED: Ondansetron 4 MG/2 ML SDV IVPUSH STA (19:19)
[2022-12-30] MEDS ORDERED: Sodium Chloride 0.9% 10 ML Syringe FLUSH PRN (19:19)
[2022-12-30] MEDS ORDERED: Morphine 4 MG/ML Syringe IVPUSH STA ×2 (19:19→20:21)
[2022-12-30 20:03] LABS: BASOPHILS PERCENT AUTO 0.4 % (0.0-1.5); EOSINOPHILS ABSOLUTE AUTO 0.1 K/uL (0.0-0.7); EOSINOPHILS PERCENT AUTO 1.2 % (0.0-7.0); HEMATOCRIT 40.5 % (36.0-46.0); HEMOGLOBIN 14.4 g/dL (12.0-16.0); LYMPHOCYTES ABSOLUTE AUTO 3.4 K/uL (0.6-2.4); LYMPHOCYTES PERCENT AUTO 43.7 % (16.0-40.0); MEAN CORPUSCULAR HGB CONC 35.6 g/dL (31.0-37.0); MEAN CORPUSCULAR VOLUME 92.9 fL (80.0-98.0); MONOCYTES ABSOLUTE AUTO 0.6 K/uL (0.0-0.8); MONOCYTES PERCENT AUTO 8.1 % (0.0-15.0); NEUTROPHILS ABSOLUTE AUTO 3.6 K/uL (1.4-5.7); NEUTROPHILS PERCENT AUTO 46.6 % (48.0-80.0); NRBC ABSOLUTE 0 K/uL; PLATELET COUNT,PLT 314 K/uL (150-400); RED BLOOD CELL COUNT 4.36 M/uL (4.30-5.90); WHITE BLOOD CELL COUNT,WBC 7.74 K/uL (4.0-11.0)
[2022-12-30] MEDS ORDERED: Aluminum Hydroxide/Magnesium Hydroxide/Simethicone XS Susp 30 ML Cup PO STA (20:21)
[2022-12-30] MEDS ORDERED: Pantoprazole 40 MG in Sodium Chloride 0.9% 10 ML IVPUSH STA (20:21)
[2022-12-30 20:26] LABS: A/G RATIO 1.1 (0.9-1.6); ALBUMIN 3.5 g/dL (3.4-5.0); BILIRUBIN TOTAL 0.4 mg/dL (0.2-1.0); CALCIUM 8.7 mg/dL (8.5-10.1); CARBON DIOXIDE,CO2 27.2 mmol/L (21.0-32.0); CREATININE 0.9 mg/dL (0.6-1.0); EST CRCL DRUG DOSING (CG) 86.34 mL/min; POTASSIUM,K 3.3 mmol/L (3.5-5.1); PROTEIN TOTAL,TP 6.8 g/dL (6.4-8.2)
[2022-12-30] MEDS ORDERED: Iopamidol 755 MG/ML 500 ML Multipack Bottle IVPUSH ONE (20:33)
== END 2022-12-30 22:09 | disposition home or self-care (01) ==
LOC: MW.ED 18:34
DX: R10.11 Right upper quadrant pain (principal); K76.0 Fatty (change of) liver, not elsewhere classified; J45.909 Unspecified asthma, uncomplicated; Z79.899 Other long term (current) drug therapy; Z88.0 Allergy status to penicillin; Z88.8 Allergy status to other drugs, medicaments and biological substances; Z91.018 Allergy to other foods
CPT/HCPCS: 36415; 74177; 76705; 80053; 83690; 85025; 96361; 96374; 96375; 96376; 99284; A9270; C9113; J2270; J2405; J3490; J7030; Q9967

== ENCOUNTER 2023-01-25 09:06 | Emergency (ER) | payer MEDICAID | END 2023-01-25 10:46 | disposition home or self-care (01) | LOC: MW.ED 09:06 | DX: H61.031 Chondritis of right external ear (principal); Z88.6 Allergy status to analgesic agent; Z88.0 Allergy status to penicillin; Z91.018 Allergy to other foods | CPT/HCPCS: 99282; 99283 ==

== ENCOUNTER 2023-02-19 12:09 | Emergency (ER) | payer MEDICAID ==
[2023-02-19] MEDS ORDERED: methylPREDNISolone Sodium Succinate 125 MG/2 ML SDV IM ONE (12:35)
== END 2023-02-19 12:52 | disposition home or self-care (01) ==
LOC: MW.ED 12:09
DX: H61.031 Chondritis of right external ear (principal); Z88.6 Allergy status to analgesic agent; Z88.0 Allergy status to penicillin; Z91.018 Allergy to other foods
CPT/HCPCS: 96372; 99282; J2930; 99283

== ENCOUNTER 2023-09-20 14:01 | Emergency (ER) | payer BC ==
[2023-09-20 15:12] LABS: APPEARANCE,URINE CLEAR; BILIRUBIN,URINE NEGATIVE (NEGATIVE); COLOR,URINE YELLOW; GLUCOSE,URINE NEGATIVE (NEGATIVE); KETONES,URINE NEGATIVE (NEGATIVE); LEUKOCYTE ESTERASE,URINE NEGATIVE (NEGATIVE); NITRITE,URINE NEGATIVE (NEGATIVE); OCCULT BLOOD,URINE NEGATIVE (NEGATIVE); PH,URINE 6.5 (5.0-8.0); PROTEIN,URINE NEGATIVE (NEGATIVE); UROBILINOGEN,URINE 0.2 EU/dL (<2.0)
[2023-09-20 16:16] LABS: CANDIDA DNA PROBE NEGATIVE (NEGATIVE); GARDNERELLA DNA PROBE POSITIVE (NEGATIVE); TRICHOMONAS DNA PROBE NEGATIVE (NEGATIVE)
[2023-09-20 16:45] LABS: C. TRACHOMATIS BY PCR NOT DETECTED; N. GONORRHOEAE BY PCR NOT DETECTED
== END 2023-09-20 15:37 | disposition home or self-care (01) ==
LOC: MW.ED 14:01
DX: N93.9 Abnormal uterine and vaginal bleeding, unspecified (principal); Z75.8 Other problems related to medical facilities and other health care; Z90.710 Acquired absence of both cervix and uterus; Z88.6 Allergy status to analgesic agent; Z88.0 Allergy status to penicillin; Z91.018 Allergy to other foods; Z88.8 Allergy status to other drugs, medicaments and biological substances; Z79.899 Other long term (current) drug therapy; Z86.19 Personal history of other infectious and parasitic diseases
CPT/HCPCS: 81003; 81025; 87480; 87491; 87510; 87591; 87660; 99283; 99284

== ENCOUNTER 2023-11-25 19:18 | Emergency (ER) | payer BC ==
[2023-11-25] MEDS: Ondansetron 4 MG/2 ML SDV IVPUSH STA (20:42)
[2023-11-25] MEDS: Morphine 4 MG/ML Syringe IVPUSH STA ×2 (20:42→22:04)
[2023-11-25 20:49] LABS: BASOPHILS ABSOLUTE AUTO 0.02 K/uL (0.00-0.20); BASOPHILS PERCENT AUTO 0.2 % (0.0-1.0); EOSINOPHILS ABSOLUTE AUTO 0.04 K/uL (0.00-0.45); EOSINOPHILS PERCENT AUTO 0.3 % (0.0-6.0); HEMATOCRIT 35.4 % (37.0-47.0); HEMOGLOBIN 12.8 g/dL (12.0-16.0); IMMATURE GRAN ABSOLUTE AUTO 0.03 K/uL (0.00-0.05); IMMATURE GRAN PERCENT AUTO 0.2 % (0.0-0.4); LYMPHOCYTES ABSOLUTE AUTO 2.08 K/uL (1.00-4.80); LYMPHOCYTES PERCENT AUTO 17.2 % (24.0-44.0); MEAN CORPUSCULAR HEMOGLOBIN 32.7 pg (28.0-32.0); MEAN CORPUSCULAR HGB CONC 36.2 g/dL (32.0-36.0); MEAN CORPUSCULAR VOLUME 90.3 fL (83.0-99.0); MEAN PLATELET VOLUME 8.7 fL (9.4-12.3); MONOCYTES ABSOLUTE AUTO 0.67 K/uL (0.00-0.80); MONOCYTES PERCENT AUTO 5.6 % (0.0-8.0); NEUTROPHILS ABSOLUTE AUTO 9.22 K/uL (1.80-7.70); NEUTROPHILS PERCENT AUTO 76.5 % (41.0-71.0); PLATELET COUNT,PLT 234 K/uL (150-400); RED BLOOD CELL COUNT 3.92 M/uL (4.10-5.30); WHITE BLOOD CELL COUNT,WBC 12.06 K/uL (3.9-11.3)
[2023-11-25 21:25] LABS: A/G RATIO 1.4 (0.9-1.6); ALBUMIN 4.1 g/dL (3.4-5.0); BILIRUBIN TOTAL 0.4 mg/dL (0.2-1.0); CALCIUM 9.1 mg/dL (8.5-10.1); CARBON DIOXIDE,CO2 23.5 mmol/L (21.0-32.0); CREATININE 0.9 mg/dL (0.6-1.0); EST CRCL DRUG DOSING (CG) 85.56 mL/min; POTASSIUM,K 3.7 mmol/L (3.5-5.1); PROTEIN TOTAL,TP 7.1 g/dL (6.4-8.2)
[2023-11-25] MEDS: Iopamidol 755 MG/ML 500 ML Multipack Bottle IVPUSH STA (22:28)
== END 2023-11-25 23:49 | disposition home or self-care (01) ==
LOC: MW.ED 19:18
DX: N83.202 Unspecified ovarian cyst, left side (principal); Z88.6 Allergy status to analgesic agent; Z88.0 Allergy status to penicillin; Z91.018 Allergy to other foods; Z88.8 Allergy status to other drugs, medicaments and biological substances; Z79.899 Other long term (current) drug therapy; Z90.710 Acquired absence of both cervix and uterus
CPT/HCPCS: 36415; 74177; 76856; 80053; 85025; 86850; 86900; 86901; 96374; 96375; 96376; 99284; J2270; J2405; Q9967

== ENCOUNTER 2024-04-18 19:09 | Emergency (ER) | payer BC ==
[2024-04-18] MEDS: predniSONE 20 MG Tab PO ONE (19:48)
== END 2024-04-18 20:14 | disposition home or self-care (01) ==
LOC: MW.ED 19:09
DX: H93.8X2 Other specified disorders of left ear (principal); I10 Essential (primary) hypertension; Z88.0 Allergy status to penicillin; Z91.018 Allergy to other foods; Z88.8 Allergy status to other drugs, medicaments and biological substances; Z79.899 Other long term (current) drug therapy; Z90.710 Acquired absence of both cervix and uterus
CPT/HCPCS: 99282; A9270

== ENCOUNTER 2024-09-16 04:51 | Emergency (ER) | payer BC ==
[2024-09-16] MEDS: methylPREDNISolone Sodium Succinate 40 MG/1 ML SDV IM ONE (05:34)
[2024-09-16] MEDS: methylPREDNISolone Sodium Succinate 40 MG/1 ML SDV ONE (05:36)
[2024-09-16] MEDS: methylPREDNISolone Acetate 40 MG/ML SDV IM ONE (05:37)
== END 2024-09-16 05:37 | disposition home or self-care (01) ==
LOC: MW.ED 04:51
DX: D89.9 Disorder involving the immune mechanism, unspecified (principal); I10 Essential (primary) hypertension; Z90.710 Acquired absence of both cervix and uterus; Z79.899 Other long term (current) drug therapy; Z88.6 Allergy status to analgesic agent; Z88.0 Allergy status to penicillin; Z88.8 Allergy status to other drugs, medicaments and biological substances; Z91.018 Allergy to other foods
CPT/HCPCS: 96372; 99282; J2919

== ENCOUNTER 2024-10-14 14:54 | Emergency (ER) | payer SELFPAY | END 2024-10-14 19:27 | disposition home or self-care (01) | LOC: MW.ED 14:54 | DX: H61.001 Unspecified perichondritis of right external ear (principal); R10.9 Unspecified abdominal pain; I10 Essential (primary) hypertension; Z90.710 Acquired absence of both cervix and uterus; Z91.018 Allergy to other foods; Z88.5 Allergy status to narcotic agent; Z88.0 Allergy status to penicillin; Z88.8 Allergy status to other drugs, medicaments and biological substances | CPT/HCPCS: 96372; 99283; J1100 ==

== ENCOUNTER 2024-11-22 14:24 | Emergency (ER) | payer SELFPAY | END 2024-11-22 15:10 | disposition home or self-care (01) | LOC: MW.ED 14:24 | DX: D89.89 Other specified disorders involving the immune mechanism, not elsewhere classified (principal); I10 Essential (primary) hypertension; Z75.3 Unavailability and inaccessibility of health-care facilities; Z88.0 Allergy status to penicillin; Z88.6 Allergy status to analgesic agent; Z91.018 Allergy to other foods; Z79.899 Other long term (current) drug therapy | CPT/HCPCS: 96372; 99282; J1100 ==